=== PATIENT | female | born 1980 | race Caucasian/White ===

== ENCOUNTER 2016-06-18 16:51 | Emergency (ER) | payer OTHER ==
[~2016-06-18] VITALS: Ht 165.1 cm; Wt 124.0 kg
[2016-06-18 16:54] VITALS: BP 143/92; PULSE 90; RESP 24; TEMP 98.1; O2SAT 98
[2016-06-18 17:05] VITALS: BP 141/93; PULSE 92; RESP 18; TEMP 98.3; O2SAT 98
[2016-06-18] MEDS ORDERED: METH500T PO (17:15)
[2016-06-18] MEDS ORDERED: CRYS28TA PO (17:17)
[2016-06-18] MEDS ORDERED: SODIUM CHLOR 0.9% 1000 ML INJ 1,000 ML IV ONE (17:17)
[2016-06-18 17:20] VITALS: O2SAT 97
--- NOTE | 2016-06-18 17:24 | PD ---
HPI Chief Complaint: Numbness/Tingling Time Seen by Provider: 17:09 Travel History International Travel<30 days: No Contact w/Intl Traveler<30days: No Traveled to known affect area: No History of Present Illness HPI The patient is a 35-year-old female who presents emergency department for right facial numbness and right arm numbness. The patient has a history of complicated migraines diagnosed one month ago by her primary physician in [place], [place]. The patient states she had a posterior headache at that time associated with right upper extremity numbness and tingling as well as blurry vision in the right eye. The patient had imaging including an MRI which was negative. The patient was diagnosed with a complicated migraine and placed on Fioricet. The patient notes a one-week history of intermittent symptoms including right facial numbness, seeing "black spots" out of the right eye, and pins and needles to the right upper extremity. She denies any weakness of the arms or legs. She denies any dysphagia or dysarthria. The patient currently resides in [place], [place], but works down the street at [employer]. The patient does take control, but does not smoke. She denies any history of CVA or TIA. She does have a history of recent diagnosis, hypertension, and was placed on methyldopa. [facility] Past Medical History Narrative Medical Complicated migraine, hypertension Asthma: Yes Cardiovascular Problems: Yes Hypertension: Yes Respiratory: Yes Migraines: Yes Influenza Vaccination: No ?: Not LMP: 05/22/16 Social History Alcohol Use: No Tobacco Use: No Substance Use: No Allergies-Medications (Allergen,Severity, Reaction): Coded Allergies: Erythromycin (Verified Allergy, Severe, 06/18/16) Sulfa (Verified Allergy, Severe, 06/18/16) Reported Meds & Prescriptions Reported Meds & Active Scripts Active Reported Cryselle-28 (Norgestrel-Ethinyl Estradiol) 0.3-30 Mg-Mcg Tab 1 Tab PO DAILY Methyldopa 500 Mg Tab 500 Mg PO BID Review of Systems Except as stated in HPI: all other systems reviewed are Neg General / Constitutional: No: Fever Eyes: Positive: Visual changes HENT: Positive: Headaches, No: Neck Pain Cardiovascular: No: Chest Pain or Discomfort Respiratory: No: Shortness of Breath Gastrointestinal: No: Nausea, Vomiting, Abdominal Pain Musculoskeletal: No: Weakness Neurologic: Positive: Paresthesia, Sensory Disturbance Physical Exam Narrative GENERAL: Awake, alert, pleasant 35-year-old female who appears her stated age and is in no acute respiratory distress. SKIN: Warm and dry. HEAD: Atraumatic. Normocephalic. EYES: Pupils equal and round. Pupils are 3 mm bilateral and reactive. EOMs are intact. Patient is able to see fingers at a distance of 2 feet without difficulty. ENT: No nasal bleeding or discharge. Mucous membranes pink and moist. NECK: Trachea midline. No JVD. CARDIOVASCULAR: Regular rate and rhythm. No murmur appreciated. RESPIRATORY: No accessory muscle use. Clear to auscultation. Breath sounds equal bilaterally. GASTROINTESTINAL: Abdomen soft, non-tender, nondistended. Obese, no rebound tenderness. MUSCULOSKELETAL: No obvious deformities. No clubbing. No cyanosis. No edema. NEUROLOGICAL: Awake and alert. Smile is symmetric. Muscles are intact. Patient is able to see fingers at a distance of 2 feet without difficulty. No dysarthria noted. Patient is alert and oriented 4. No drift of the upper or lower extremities. Finger to nose is normal. Heel-to- merrill is normal. Decreased sensation in V1, V2, V3 distribution on the right side of the face when compared to the left. Decreased sensation to the right arm when compared to the left on physical exam. Sensation is symmetric to lower extremities. PSYCHIATRIC: Appropriate mood and affect; insight and judgment normal. Data Data Last Documented VS Vital Signs Date Time Temp Pulse Resp B/P Pulse Ox O2 Delivery O2 Flow Rate FiO2 06/18/16 18:17 65 16 124/63 95 Room Air 06/18/16 17:05 98.3 Orders Complete Blood Count With Diff (06/18/16 17:17) Comprehensive Metabolic Panel (06/18/16 17:17) Westergren Sedimentation Rate (06/18/16 17:17) C-Reactive Protein (Crp) (06/18/16 17:17) Prothrombin Time / Inr (Pt) (06/18/16 17:17) Act Partial Throm Time (Ptt) (06/18/16 17:17) Ecg Monitoring (06/18/16 17:17) Iv Access Insert/Monitor (06/18/16 17:17) Oximetry (06/18/16 17:17) Sodium Chloride 0.9% Flush (Ns Flush) (06/18/16 17:30) Prochlorperazine Inj (Compazine Inj) (06/18/16 17:30) Diphenhydramine Inj (Benadryl Inj) (06/18/16 17:30) Sodium Chlor 0.9% 1000 Ml Inj (Ns 1000 M (06/18/16 17:17) Morphine Inj (Morphine Inj) (06/18/16 17:30) Mri Brain W/O Contrast (06/18/16 ) Electrocardiogram (06/18/16 15:11) Ketorolac Inj (Toradol Inj) (06/18/16 19:15) Radiology Film Requests (06/18/16 ) Labs Laboratory Tests Test 06/18/16 17:30 White Blood Count 8.3 TH/MM3 Red Blood Count 4.42 MIL/MM3 Hemoglobin 11.9 GM/DL Hematocrit 36.6 % Mean Corpuscular Volume 82.8 FL Mean Corpuscular Hemoglobin 26.9 PG Mean Corpuscular Hemoglobin 32.5 % Concent Red Cell Distribution Width 14.3 % Platelet Count 275 TH/MM3 Mean Platelet Volume 7.9 FL Neutrophils (%) (Auto) 62.2 % Lymphocytes (%) (Auto) 31.0 % Monocytes (%) (Auto) 6.6 % Eosinophils (%) (Auto) 0.1 % Basophils (%) (Auto) 0.1 % Neutrophils # (Auto) 5.2 TH/MM3 Lymphocytes # (Auto) 2.6 TH/MM3 Monocytes # (Auto) 0.5 TH/MM3 Eosinophils # (Auto) 0.0 TH/MM3 Basophils # (Auto) 0.0 TH/MM3 CBC Comment DIFF FINAL Differential Comment Erythrocyte Sedimentation Rate 46 mm/hr Prothrombin Time 10.5 SEC Prothromb Time International 1.0 RATIO Ratio Activated Partial 27.6 SEC Thromboplast Time Sodium Level 139 MEQ/L Potassium Level 3.4 MEQ/L Chloride Level 101 MEQ/L Carbon Dioxide Level 29.6 MEQ/L Anion Gap 8 MEQ/L Blood Urea Nitrogen 11 MG/DL Creatinine 1.14 MG/DL Estimat Glomerular Filtration 55 ML/MIN Rate Random Glucose 102 MG/DL Calcium Level 8.2 MG/DL Total Bilirubin 0.3 MG/DL Aspartate Amino Transf 11 U/L (AST/SGOT) Alanine Aminotransferase 19 U/L (ALT/SGPT) Alkaline Phosphatase 62 U/L C-Reactive Protein 6.00 MG/DL Total Protein 6.3 GM/DL Albumin 2.9 GM/DL [facility] Medical Decision Making Medical Screen Exam Complete: Yes Emergency Medical Condition: Yes Medical Record Reviewed: Yes Interpretation(s) EKG reveals normal sinus rhythm with a rate 88. Short MN interval of 110 ms. No delta wave noted. Laboratory Tests Test 06/18/16 17:30 White Blood Count 8.3 TH/MM3 Red Blood Count 4.42 MIL/MM3 Hemoglobin 11.9 GM/DL Hematocrit 36.6 % Mean Corpuscular Volume 82.8 FL Mean Corpuscular Hemoglobin 26.9 PG Mean Corpuscular Hemoglobin 32.5 % Concent Red Cell Distribution Width 14.3 % Platelet Count 275 TH/MM3 Mean Platelet Volume 7.9 FL Neutrophils (%) (Auto) 62.2 % Lymphocytes (%) (Auto) 31.0 % Monocytes (%) (Auto) 6.6 % Eosinophils (%) (Auto) 0.1 % Basophils (%) (Auto) 0.1 % Neutrophils # (Auto) 5.2 TH/MM3 Lymphocytes # (Auto) 2.6 TH/MM3 Monocytes # (Auto) 0.5 TH/MM3 Eosinophils # (Auto) 0.0 TH/MM3 Basophils # (Auto) 0.0 TH/MM3 CBC Comment DIFF FINAL Differential Comment Erythrocyte Sedimentation Rate 46 mm/hr Prothrombin Time 10.5 SEC Prothromb Time International 1.0 RATIO Ratio Activated Partial 27.6 SEC Thromboplast Time Sodium Level 139 MEQ/L Potassium Level 3.4 MEQ/L Chloride Level 101 MEQ/L Carbon Dioxide Level 29.6 MEQ/L Anion Gap 8 MEQ/L Blood Urea Nitrogen 11 MG/DL Creatinine 1.14 MG/DL Estimat Glomerular Filtration 55 ML/MIN Rate Random Glucose 102 MG/DL Calcium Level 8.2 MG/DL Total Bilirubin 0.3 MG/DL Aspartate Amino Transf 11 U/L (AST/SGOT) Alanine Aminotransferase 19 U/L (ALT/SGPT) Alkaline Phosphatase 62 U/L C-Reactive Protein 6.00 MG/DL Total Protein 6.3 GM/DL Albumin 2.9 GM/DL MRI of the brain reveals normal noncontrast MRI of the brain. Differential Diagnosis Differential diagnosis includes complicated migraine, CVA, TIA, multiple sclerosis, cavernous sinus thrombosis, intracranial hemorrhage, cervical radiculopathy. Narrative Course IV was established, labs are drawn and sent, and the patient was placed on cardiac telemetry monitoring and continuous pulse oximetry monitoring. The patient does have neurologic complaints without headache, but has had similar symptoms in the past secondary to a complicated migraine. Symptoms have been intermittent and ongoing for 1 week, patient would not be a candidate for TPA. She does have decreased sensation to the V1, V2, and V3 distribution of the face as well as the arm, but would not be a TPA candidate with her time if symptoms and stroke scale of 1. Therefore, patient had an IV established, labs are drawn and sent, and the patient was administered migraine medications. Stat MRI was ordered to evaluate for possible CVA, however, she has had a negative MRI in the past. CRP is mildly elevated at 6, sedimentation rate is mildly elevated at 46, MRI the brain is negative. Patient may have auto immune pathology for her headaches versus complicated migraine. The patient was reassessed at 7:05 PM, her symptoms had significantly improved in the face and eye, still had mild numbness/tingling to the right arm. Patient was administered Toradol 30 mg intravenously. The patient be discharged home with a copy of her MRI as well as an MRI disc and lab results to follow-up with her primary physician and the neurologist that she has an appointment with. The patient agrees and understands. The patient's mother will drive her home. Diagnosis Primary Impression: Complicated migraine Additional Impression: Paresthesias Additional Instructions: MRI disc and copy of MRI report/labs at discharge. Ride home with father. Return if symptoms worsen or progress. Condition: Stable Solomon Elder MD Jun 18, 2016 17:24
[2016-06-18] MEDS ORDERED: SODIUM CHLORIDE 0.9% FLUSH 5 ML FLUSH IVF PRN (17:30)
[2016-06-18] MEDS ORDERED: diphenhydrAMINE HCL 50 MG/ML VIAL IVP ONE (17:30)
[2016-06-18] MEDS ORDERED: PROCHLORPERAZINE INJ 10 MG/2 ML VIAL IVP ONE (17:30)
[2016-06-18] MEDS ORDERED: MORPHINE SULFATE 4 MG/ML INJ IV PUSH ONE (17:30)
[2016-06-18 17:59] LABS: AUTOMATED NEUTROPHIL # 5.2 TH/MM3 (1.8-7.7); BASOPHIL % 0.1 % (0.0-2.0); EOSINOPHIL % 0.1 % (0.0-4.0); HEMATOCRIT 36.6 % (35.0-46.0); HEMO FLAGS DIFF FINAL; LYMPHOCYTE # 2.6 TH/MM3 (1.0-4.8); MEAN CELL VOLUME 82.8 FL (80.0-100.0); MEAN CORPUSCULAR HEMOGLOBIN 26.9 PG (27.0-34.0); MEAN CORPUSCULAR HGB CONC 32.5 % (32.0-36.0); MONO % 6.6 % (0.0-8.0); NEUT % 62.2 % (16.0-70.0); PLATELET COUNT 275 TH/MM3 (150-450); RED BLOOD COUNT 4.42 MIL/MM3 (4.00-5.30); RED CELL DISTRIBUTION WIDTH 14.3 % (11.6-17.2); WHITE BLOOD COUNT 8.3 TH/MM3 (4.0-11.0)
[2016-06-18 18:07] LABS: APTT (PATIENT) 27.6 SEC (24.3-30.1); PROTHROMBIN TIME - PATIENT 10.5 SEC (9.8-11.6)
[2016-06-18 18:16] LABS: ANION GAP 8 MEQ/L (5-15); AST (GOT) 11 U/L (15-37); BICARBONATE 29.6 MEQ/L (21.0-32.0); BLOOD UREA NITROGEN 11 MG/DL (7-18); CHLORIDE 101 MEQ/L (98-107); GLOMERULAR FILTRATION RATE 55 ML/MIN (>89); POTASSIUM 3.4 MEQ/L (3.5-5.1); SODIUM (NA) 139 MEQ/L (136-145)
[2016-06-18 18:17] VITALS: BP 124/63; PULSE 65; RESP 16; O2SAT 95
[2016-06-18 18:20] LABS: ALKALINE PHOSPHATASE 62 U/L (45-117); ALT (GPT) 19 U/L (10-53); TOTAL BILIRUBIN ADULT 0.3 MG/DL (0.2-1.0)
--- NOTE | 2016-06-18 19:00 | RADRPT ---
EXAM DATE/TIME: 06/18/2016 18:34 [facility] COMPARISON: No previous studies available for comparison. INDICATIONS : CVA. Numbness and tingling on right side of face and right arm. MEDICAL HISTORY : Hypertension. Asthma. SURGICAL HISTORY : Right ankle surgery. ENCOUNTER: Initial ACUITY: 1 day PAIN SCORE: 0/10 LOCATION: Head. TECHNIQUE: Multiplanar, multisequence MRI of the brain was performed without contrast. FINDINGS: CEREBRUM: The ventricles are normal for age. No evidence of midline shift, mass lesion, hemorrhage or acute in farction. No extraaxial fluid collections are seen. The pituitary gland and suprasellar cistern are normal in configuration. WHITE MATTER: No significant signal abnormalities are seen in the white matter. POSTERIOR FOSSA: The cerebellum and brainstem are intact. The 4th ventricle is midline. The cerebellopontine angle is unremarkable. The cerebellar tonsils are normal in position. DIFFUSION IMAGING: No focal areas of restricted diffusion are seen. No evidence of acute infarction. EXTRACRANIAL: The visualized portions of the orbits and paranasal sinuses are unremarkable. CONCLUSION: Normal noncontrast MRI of the brain. Stan Gonzalez MD on June 18, 2016 at 18:58 Board Certified Radiologist. This report was verified electronically.
[2016-06-18] MEDS ORDERED: KETOROLAC TROMETHAMINE 30 MG/ML (IVP) VIAL IV PUSH ONE (19:15)
--- NOTE | 2016-06-19 14:51 | EKG ---
Date Performed: 06/18/2016 Time Performed: 15:11:15 PTAGE: 35 years EKG: Sinus rhythm WITH SHORT MS INTERVAL BORDERLINE ECG NO PREVIOUS TRACING DOCTOR: Fátima Rojas Interpretating Date/Time 06/19/2016 14:51:14
== END 2016-06-18 21:43 | disposition home or self-care (01) ==
LOC: NEPA 16:51
DX: G43.109 Migraine with aura, not intractable, without status migrainosus (principal); R20.2 Paresthesia of skin; R94.31 Abnormal electrocardiogram [ECG] [EKG]; I10 Essential (primary) hypertension; J45.909 Unspecified asthma, uncomplicated
CPT/HCPCS: 70551; 80053; 85025; 85610; 85652; 85730; 86140; 93005; 96374; 96375; 99284; J0780; J1200; J1885; J2270; J7030

== ENCOUNTER 2016-09-02 16:35 | Observation (INO) | payer OTHER ==
[~2016-09-02] VITALS: Ht 165.1 cm; Wt 125.0 kg
[2016-09-02] VITALS (8 sets, daily range): BP systolic 116–152; BP diastolic 63–99; PULSE 68–88; RESP 16–25; TEMP 97.9–98; O2SAT 96–100
[~2016-09-02 16:35] MED LIST: CRYS28TA PO; METH500T PO
[2016-09-02] MEDS ORDERED: SODIUM CHLORIDE 0.9% FLUSH 10 ML FLUSH IVF PRN (17:00)
--- NOTE | 2016-09-02 17:07 | PD ---
HPI Chief Complaint: Neuro Symptoms/ Deficits Time Seen by Provider: 17:02 Travel History International Travel<30 days: No Contact w/Intl Traveler<30days: No Traveled to known affect area: No History of Present Illness HPI 35-year-old female presents to the emergency department for evaluation of symptoms that started at 345 this afternoon. Patient is from [place], but works here in [place]. She has a neurologist in [place]. She states she has had these ongoing symptoms. She reports history of migraine headaches. Patient states that she has twitching of her bilateral lower extremities. She reports heaviness of her right arm and right leg and inability to open her right eye. Patient states these are similar to her previous episodes, but "this is different". The patient had an EEG done recently by her neurologist for similar symptoms. She has had MRIs done previously. Patient was seen in June for similar episode and a MRI was completed at that time. PFSH Past Medical History Asthma: Yes Cardiovascular Problems: Yes Diminished Hearing: No Hypertension: Yes Respiratory: Yes Migraines: Yes Tetanus Vaccination: < 5 Years Influenza Vaccination: No ?: Unknown Social History Alcohol Use: No Tobacco Use: No Substance Use: No Allergies-Medications (Allergen,Severity, Reaction): Coded Allergies: Erythromycin (Verified Allergy, Severe, 09/02/16) Sulfa (Verified Allergy, Severe, 09/02/16) Reported Meds & Prescriptions Reported Meds & Active Scripts Active Reported Vitamin D3 (Cholecalciferol) 50,000 Unit Cap 50,000 Units PO Wed Gabapentin 100 Mg Cap 300 Mg PO TID Cryselle-28 (Norgestrel-Ethinyl Estradiol) 0.3-30 Mg-Mcg Tab 1 Tab PO DAILY Methyldopa 500 Mg Tab 500 Mg PO BID Review of Systems Except as stated in HPI: all other systems reviewed are Neg Physical Exam Narrative GENERAL: Well-nourished, well-developed female patient, afebrile. SKIN: Focused skin assessment warm/dry. HEAD: Normocephalic. Atraumatic. EYES: No scleral icterus. No injection or drainage. PERRLA. Slight ptosis of the right eye. NECK: Supple, trachea midline. No JVD or lymphadenopathy. CARDIOVASCULAR: Regular rate and rhythm without murmurs, gallops, or rubs. RESPIRATORY: Breath sounds equal bilaterally. No accessory muscle use. Lungs sounds are clear to auscultation. GASTROINTESTINAL: Abdomen soft, non-tender, nondistended. MUSCULOSKELETAL: No cyanosis, or edema. Right upper extremity strength 4/5. Left upper extremity strength 5/5. Right lower extremity strength 4/5. Left upper extremity strength 5/5. NEUROLOGICAL: Awake and alert. Cranial nerves II through XII intact. Motor and sensory grossly within normal limits. Five out of 5 muscle strength in all muscle groups. Normal speech. Finger to nose is normal bilaterally. Patient has difficulty with [id number] with the right leg, has no difficulty with her left leg. Data Data Last Documented VS Vital Signs Date Time Temp Pulse Resp B/P Pulse Ox O2 Delivery O2 Flow Rate FiO2 09/02/16 19:19 77 16 141/65 99 Room Air 09/02/16 16:41 98.0 Orders Electrocardiogram (09/02/16 16:59) Prothrombin Time / Inr (Pt) (09/02/16 16:59) Act Partial Throm Time (Ptt) (09/02/16 16:59) Complete Blood Count With Diff (09/02/16 16:59) Comprehensive Metabolic Panel (09/02/16 16:59) Creatine Kinase (Cpk) (09/02/16 16:59) Drug Screen, Random Urine (09/02/16 16:59) Troponin I (09/02/16 16:59) Urinalysis - C+S If Indicated (09/02/16 16:59) Ecg Monitoring (09/02/16 16:59) Iv Access Insert/Monitor (09/02/16 16:59) Oximetry (09/02/16 16:59) Sodium Chloride 0.9% Flush (Ns Flush) (09/02/16 17:00) Ed Urine Pregnancytest Poc (09/02/16 17:01) Ct Brain W/O Iv Contrast(Rout) (09/02/16 ) Diphenhydramine Inj (Benadryl Inj) (09/02/16 17:30) Prochlorperazine Inj (Compazine Inj) (09/02/16 17:30) Cta Brain W Iv Contrast W 3d (09/02/16 ) Mri Brain W/O Contrast (09/02/16 ) Cta Neck W Iv Contrast W 3d (09/02/16 ) I-Stat Creatinine (09/02/16 17:15) I-Stat Profile (09/02/16 17:15) Iohexol 350 Inj (Omnipaque 350 Inj) (09/02/16 18:36) Aspirin (Aspirin) (09/02/16 19:30) Labs Laboratory Tests Test 09/02/16 09/02/16 17:15 19:10 White Blood Count 8.0 TH/MM3 Red Blood Count 4.55 MIL/MM3 Hemoglobin 12.7 GM/DL Bedside Hemoglobin 12.6 G/DL Hematocrit 37.6 % Bedside Hematocrit 37.0 % Mean Corpuscular Volume 82.6 FL Mean Corpuscular Hemoglobin 27.8 PG Mean Corpuscular Hemoglobin 33.7 % Concent Red Cell Distribution Width 15.2 % Platelet Count 301 TH/MM3 Mean Platelet Volume 8.2 FL Neutrophils (%) (Auto) 59.0 % Lymphocytes (%) (Auto) 32.6 % Monocytes (%) (Auto) 8.3 % Eosinophils (%) (Auto) 0.0 % Basophils (%) (Auto) 0.1 % Neutrophils # (Auto) 4.7 TH/MM3 Lymphocytes # (Auto) 2.6 TH/MM3 Monocytes # (Auto) 0.7 TH/MM3 Eosinophils # (Auto) 0.0 TH/MM3 Basophils # (Auto) 0.0 TH/MM3 CBC Comment DIFF FINAL Differential Comment Prothrombin Time 10.4 SEC Prothromb Time International 0.9 RATIO Ratio Activated Partial 28.7 SEC Thromboplast Time Bedside Sodium 138 MMOL/L Sodium Level 138 MEQ/L Bedside Potassium 4.1 MMOL/L Potassium Level 4.2 MEQ/L Bedside Chloride 102 MMOL/L Chloride Level 105 MEQ/L Carbon Dioxide Level 24.3 MEQ/L Anion Gap 9 MEQ/L Bedside Blood Urea Nitrogen 8 MG/DL Blood Urea Nitrogen 8 MG/DL Creatinine 0.79 MG/DL Bedside Creatinine 0.9 MG/DL Estimat Glomerular Filtration 84 ML/MIN Rate Bedside Glucose 73 MG/DL Random Glucose 69 MG/DL Calcium Level 8.6 MG/DL Total Bilirubin 0.3 MG/DL Aspartate Amino Transf 18 U/L (AST/SGOT) Alanine Aminotransferase 21 U/L (ALT/SGPT) Alkaline Phosphatase 59 U/L Total Creatine Kinase 80 U/L Troponin I LESS THAN 0.02 NG/ML Total Protein 6.6 GM/DL Albumin 3.1 GM/DL Urine Opiates Screen NEG Urine Barbiturates Screen NEG Urine Amphetamines Screen NEG Urine Benzodiazepines Screen NEG Urine Cocaine Screen NEG Urine Cannabinoids Screen NEG MDM Medical Decision Making Medical Screen Exam Complete: Yes Emergency Medical Condition: Yes Medical Record Reviewed: Yes Interpretation(s) CTA brain - CONCLUSION: 1. No embolic event to explain current clinical symptoms. 2. 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 3. The left P1 segment also appears to be somewhat diminutive and irregular with a diminutive left posterior communicating artery which is probably congenital. However, the combination could limit blood flow to the left posterior cerebral artery territory. Again, anatomic detail is somewhat limited and findings could be confirmed with standard angiography if clinically warranted. Last Impressions Head CT 09/02/16 0000 Signed Impressions: Service Date/Time: Wednesday, September 02, 2016 17:20 - CONCLUSION: No acute intracranial findings. Neftali Quigley MD CTA neck - CONCLUSION: Negative exam. MRI brain - CONCLUSION: Normal examination. Differential Diagnosis Migraine headache versus CVA versus electrolyte abnormality Narrative Course 35-year-old female presents to the emergency department for evaluation of neurological symptoms. Patient has history of similar symptoms in the past. She seems a neurologist in [place]. EKG, CBC, CMP, CK, troponin, PTT , PT/INR, UA, UDS, UPT are ordered and pending. My attending physician, Dr. Garay, called a stroke alert based on symptoms. He spoke to Dr. Alberto, neurologist, who does not recommend TPA based on previous history of complex migraines with similar symptoms. CT of the brain shows no acute intracranial findings. CTA of the brain and MRI of the brain are ordered. EKG shows sinus rhythm, heart rate 81, no acute ST changes. CBC is unremarkable. CMP shows no acute abnormality. CK is 80. Troponin is less than 0.02. Coags are unremarkable. 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 However, the combination could limit blood flow to the left posterior cerebral artery territory. Again, anatomic detail is somewhat limited and findings could be confirmed with standard angiography if clinically warranted. CTA of the neck shows no acute abnormality. MRI of the brain is normal. Dr. Alberto would like patient admitted and neurology consulted. [facility] [place] is paged for admission. Dr. Remy accepted admission. Diagnosis Primary Impression: TIA (transient ischemic attack) Qualified Code: G45.9 - Transient cerebral ischemia, unspecified type Admitting Information Admitting Physician Requests: Lesley Mckenzie September 02, 2016 17:07
--- NOTE | 2016-09-02 17:24 | PD ---
Data Data Last Documented VS Vital Signs Date Time Temp Pulse Resp B/P Pulse Ox O2 Delivery O2 Flow Rate FiO2 09/02/16 19:19 77 16 141/65 99 Room Air 09/02/16 16:41 98.0 Orders Electrocardiogram (09/02/16 16:59) Prothrombin Time / Inr (Pt) (09/02/16 16:59) Act Partial Throm Time (Ptt) (09/02/16 16:59) Complete Blood Count With Diff (09/02/16 16:59) Comprehensive Metabolic Panel (09/02/16 16:59) Creatine Kinase (Cpk) (09/02/16 16:59) Drug Screen, Random Urine (09/02/16 16:59) Troponin I (09/02/16 16:59) Urinalysis - C+S If Indicated (09/02/16 16:59) Ecg Monitoring (09/02/16 16:59) Iv Access Insert/Monitor (09/02/16 16:59) Oximetry (09/02/16 16:59) Sodium Chloride 0.9% Flush (Ns Flush) (09/02/16 17:00) Ed Urine Pregnancytest Poc (09/02/16 17:01) Ct Brain W/O Iv Contrast(Rout) (09/02/16 ) Diphenhydramine Inj (Benadryl Inj) (09/02/16 17:30) Prochlorperazine Inj (Compazine Inj) (09/02/16 17:30) Cta Brain W Iv Contrast W 3d (09/02/16 ) Mri Brain W/O Contrast (09/02/16 ) Cta Neck W Iv Contrast W 3d (09/02/16 ) I-Stat Creatinine (09/02/16 17:15) I-Stat Profile (09/02/16 17:15) Iohexol 350 Inj (Omnipaque 350 Inj) (09/02/16 18:36) Aspirin (Aspirin) (09/02/16 19:30) Admit Order (Ed Use Only) (09/02/16 21:59) Consult Neurology (09/02/16 ) Place In Observation (09/02/16 ) Vital Signs (Adult) Q2HX12,Q4H (09/02/16 22:00) Nih Stroke Scale - Nihss .Daily (09/02/16 22:00) Neuro Checks Q2HX12,Q4H (09/02/16 22:00) Notify Dr: Other (09/02/16 22:00) Remove Urinary Catheter .ONCE (09/02/16 22:00) Ot Request For Service (09/02/16 22:00) Pt Request For Service (09/02/16 22:00) St Request For Service (09/02/16 22:00) Case Management Consult (09/02/16 ) Activity Oob Ad Shannan (09/02/16 22:00) Nursing Bedside Swallow Assess .ONCE (09/02/16 22:00) Scd Bilateral/Knee High TERESA.QSHIFT (09/02/16 22:00) Hemoglobin (Hgb) A1c (09/02/16 22:00) Lipid Profile (09/03/16 06:00) ^ Hold Medication (09/02/16 22:00) Sodium Chloride 0.9% Flush (Ns Flush) (09/03/16 09:00) Sodium Chloride 0.9% Flush (Ns Flush) (09/02/16 22:00) Bedside Glucose TERESA.AC&HS (09/02/16 22:00) Dextrose 50% In Chris (Vial) Inj (D50w (Vi (09/02/16 22:00) Glucagon Inj (Glucagon Inj) (09/02/16 22:00) City Carrier / Telemetry TERESA.Q8H (09/02/16 22:00) Consult Stoke Navigator (09/02/16 ) Enoxaparin Inj (Lovenox Inj) (09/03/16 09:00) Labs Laboratory Tests Test 09/02/16 09/02/16 17:15 19:10 White Blood Count 8.0 TH/MM3 Red Blood Count 4.55 MIL/MM3 Hemoglobin 12.7 GM/DL Bedside Hemoglobin 12.6 G/DL Hematocrit 37.6 % Bedside Hematocrit 37.0 % Mean Corpuscular Volume 82.6 FL Mean Corpuscular Hemoglobin 27.8 PG Mean Corpuscular Hemoglobin 33.7 % Concent Red Cell Distribution Width 15.2 % Platelet Count 301 TH/MM3 Mean Platelet Volume 8.2 FL Neutrophils (%) (Auto) 59.0 % Lymphocytes (%) (Auto) 32.6 % Monocytes (%) (Auto) 8.3 % Eosinophils (%) (Auto) 0.0 % Basophils (%) (Auto) 0.1 % Neutrophils # (Auto) 4.7 TH/MM3 Lymphocytes # (Auto) 2.6 TH/MM3 Monocytes # (Auto) 0.7 TH/MM3 Eosinophils # (Auto) 0.0 TH/MM3 Basophils # (Auto) 0.0 TH/MM3 CBC Comment DIFF FINAL Differential Comment Prothrombin Time 10.4 SEC Prothromb Time International 0.9 RATIO Ratio Activated Partial 28.7 SEC Thromboplast Time Bedside Sodium 138 MMOL/L Sodium Level 138 MEQ/L Bedside Potassium 4.1 MMOL/L Potassium Level 4.2 MEQ/L Bedside Chloride 102 MMOL/L Chloride Level 105 MEQ/L Carbon Dioxide Level 24.3 MEQ/L Anion Gap 9 MEQ/L Bedside Blood Urea Nitrogen 8 MG/DL Blood Urea Nitrogen 8 MG/DL Creatinine 0.79 MG/DL Bedside Creatinine 0.9 MG/DL Estimat Glomerular Filtration 84 ML/MIN Rate Bedside Glucose 73 MG/DL Random Glucose 69 MG/DL Calcium Level 8.6 MG/DL Total Bilirubin 0.3 MG/DL Aspartate Amino Transf 18 U/L (AST/SGOT) Alanine Aminotransferase 21 U/L (ALT/SGPT) Alkaline Phosphatase 59 U/L Total Creatine Kinase 80 U/L Troponin I LESS THAN 0.02 NG/ML Total Protein 6.6 GM/DL Albumin 3.1 GM/DL Urine Opiates Screen NEG Urine Barbiturates Screen NEG Urine Amphetamines Screen NEG Urine Benzodiazepines Screen NEG Urine Cocaine Screen NEG Urine Cannabinoids Screen NEG MDM Supervised Visit with ROBBY: Yes Narrative Course I, Dr. Garay, have reviewed the advance practice practitioner's documentation and am in agreement, met with the patient face to face, made the diagnosis, and the medical decision making was done by me. *My assessment and Findings: Is a 35-year-old female with a history of recurrent complex migraine she states that "something is different today". She states that her right upper and right lower extremity feels very heavy. She is also noticed that she is having some increased difficulty opening her right eye. 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 No hyperreflexia was noted. 5 out of 5 strength in left upper left lower extremity. Mentally she is intact she is alert and awake and oriented and answers all questions properly. My impression is complex migraine favored over TIA. Her NIH stroke scale is quite low and there is no indication for TPA at this time. Further bili is unlikely that she has had a syncopal event leading to both cranial nerve III and extremity findings as documented above. Certainly things even less likely when she does not have any language deficit. The patient was discussed with Dr. gomez after her stroke alert was activated and she agrees the patient is not a candidate for TPA. She will be admitted to the hospital for further evaluation including MRI and consultation in the morning with neurology. Diagnosis Primary Impression: Neurological deficit, transient Additional Impression: Paresthesias Admitting Information Admitting Physician Requests: Admit Condition: Stable Leonard Garay MD September 02, 2016 17:24
[2016-09-02] MEDS ORDERED: PROCHLORPERAZINE INJ 10 MG/2 ML VIAL IV PUSH ONE (17:30)
[2016-09-02] MEDS ORDERED: diphenhydrAMINE HCL 50 MG/ML VIAL IV PUSH ONE (17:30)
--- NOTE | 2016-09-02 17:37 | RADRPT ---
EXAM DATE/TIME: 09/02/2016 17:20 [facility] COMPARISON: No previous studies available for comparison. INDICATIONS : Right side facial droop right side heaviness . RADIATION DOSE: 56.35 CTDIvol (mGy) This report was called by Dr. Quigley to Dr. Garay at 1734 MEDICAL HISTORY : Unable to obtain SURGICAL HISTORY : Unable to obtain ENCOUNTER: Initial ACUITY: 1 day PAIN SCALE: 0/10 LOCATION: cranial TECHNIQUE: Multiple contiguous axial images were obtained of the head. Using automated exposure control and adj ustment of the mA and/or kV according to patient size, radiation dose was kept as low as reasonably a chievable to obtain optimal diagnostic quality images. FINDINGS: CEREBRUM: The ventricles are normal for age. No evidence of midline shift, mass lesion, hemorrhage or acute in farction. No extra-axial fluid collections are seen. POSTERIOR FOSSA: The cerebellum and brainstem are intact. The 4th ventricle is midline. The cerebellopontine angle i s unremarkable. EXTRACRANIAL: The visualized portion of the orbits is intact. SKULL: The calvaria is intact. No evidence of skull fracture. CONCLUSION: No acute intracranial findings. Neftali Quigley MD on September 02, 2016 at 17:31 Board Certified Radiologist. This report was verified electronically.
[2016-09-02 17:42] LABS: AUTOMATED NEUTROPHIL # 4.7 TH/MM3 (1.8-7.7); BASOPHIL % 0.1 % (0.0-2.0); HEMATOCRIT 37.6 % (35.0-46.0); HEMO FLAGS DIFF FINAL; LYMPH % 32.6 % (9.0-44.0); LYMPHOCYTE # 2.6 TH/MM3 (1.0-4.8); MEAN CELL VOLUME 82.6 FL (80.0-100.0); MEAN CORPUSCULAR HEMOGLOBIN 27.8 PG (27.0-34.0); MEAN CORPUSCULAR HGB CONC 33.7 % (32.0-36.0); MONO % 8.3 % (0.0-8.0); PLATELET COUNT 301 TH/MM3 (150-450); RED BLOOD COUNT 4.55 MIL/MM3 (4.00-5.30); RED CELL DISTRIBUTION WIDTH 15.2 % (11.6-17.2)
[2016-09-02 17:55] LABS: APTT (PATIENT) 28.7 SEC (24.3-30.1); INTERNATIONAL NORMALIZED RATIO 0.9 RATIO; PROTHROMBIN TIME - PATIENT 10.4 SEC (9.8-11.6)
[2016-09-02 18:08] LABS: ANION GAP 9 MEQ/L (5-15); AST (GOT) 18 U/L (15-37); BICARBONATE 24.3 MEQ/L (21.0-32.0); BLOOD UREA NITROGEN 8 MG/DL (7-18); CHLORIDE 105 MEQ/L (98-107); GLOMERULAR FILTRATION RATE 84 ML/MIN (>89); POTASSIUM 4.2 MEQ/L (3.5-5.1); SODIUM (NA) 138 MEQ/L (136-145)
[2016-09-02 18:09] LABS: ALT (GPT) 21 U/L (10-53)
[2016-09-02 18:13] LABS: ALKALINE PHOSPHATASE 59 U/L (45-117); TOTAL BILIRUBIN ADULT 0.3 MG/DL (0.2-1.0)
[2016-09-02 18:16] LABS: CREATINE KINASE 80 U/L (26-192); I-STAT POTASSIUM 4.1 MMOL/L (3.5-4.9); I-STAT SODIUM 138 MMOL/L (138-146)
[2016-09-02] MEDS ORDERED: IOHEXOL 350 MG/ML 10 ML VIAL (for RAD DIAG) IV ONE (18:36)
--- NOTE | 2016-09-02 18:49 | RADRPT ---
EXAM DATE/TIME: 09/02/2016 18:05 [facility] COMPARISON: No previous studies available for comparison. INDICATIONS : Stroke alert, right sided weakness. IV CONTRAST: 99 cc Omnipaque 350 (iohexol) IV RADIATION DOSE: 30.06 CTDIvol (mGy) MEDICAL HISTORY : None SURGICAL HISTORY : None. ENCOUNTER: Initial ACUITY: 1 day PAIN SCALE: 3/10 LOCATION: Right cranial TECHNIQUE: Volumetric scanning was performed using a multi-row detector CT scanner. The data was post processed with a variety of visualization algorithms including full volume maximum intensity projection, multi -planar sliding thin slab reformation, curved planar reformation, and surface rendering techniques. Using automated exposure control and adjustment of the mA and/or kV according to patient size, radiat ion dose was kept as low as reasonably achievable to obtain optimal diagnostic quality images. FINDINGS: Due to patient's body habitus, examination is somewhat limited but I believe adequate for diagnosis. In-Flow vessels are patent. 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 However, the left A1 segment is widely patent with a prominent anterior communica ting artery which provides flow to the right anterior cerebral artery. Both middle cerebral arteries are patent as well without on embolic event. In the posterior circulation, again, the in-flow vessels are patent. However, both P1 segments appear to be markedly atretic. The right posterior cerebral artery receives its dominant supply from a sotelo nt posterior communicating artery. The left posterior commuting artery appears to be diminutive and t here appears to be some atherosclerotic irregularity of the left P1 segment which may limit blood mary carmen w to the left posterior cerebral artery territory. Again, anatomic detail is somewhat limited and thi s may be artifactual. Moderate chronic sinus disease in the sphenoids sinuses. CONCLUSION: 1. No embolic event to explain current clinical symptoms. 2. 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 3. The left P1 segment also appears to be somewhat diminutive and irregular with a diminutive left po sterior communicating artery which is probably congenital. However, the combination could limit blood flow to the left posterior cerebral artery territory. Again, anatomic detail is somewhat limited and findings could be confirmed with standard angiography if clinically warranted. Gian Jones MD on September 02, 2016 at 18:27 Board Certified Radiologist. This report was verified electronically.
--- NOTE | 2016-09-02 19:12 | RADRPT ---
EXAM DATE/TIME: 09/02/2016 18:05 [facility] COMPARISON: No previous studies available for comparison. INDICATIONS : Stroke alert right sided weakness. IV CONTRAST: 99 cc Omnipaque 350 (iohexol) IV RADIATION DOSE: 30.06 CTDIvol (mGy) ; Combined studies MEDICAL HISTORY : None SURGICAL HISTORY : None. ENCOUNTER: Initial ACUITY: 1 day PAIN SCALE: 5/10 LOCATION: Right cranial Elevated flow velocities and ICA/CCA ratios have been found to correlate with increased degrees of vessel stenosis, calculated as percentage of diameter relative to a normal segment of distal ICA/CCA. TECHNIQUE: Volumetric scanning was performed using a multirow detector CT scanner. The data was post processed with a variety of visualization algorithms including full-volume maximum intensity projection, multip lanar sliding thin-slab reformation, curved-planar reformation, and surface-rendering techniques. Us ing automated exposure control and adjustment of the mA and/or kV according to patient size, radiatio n dose was kept as low as reasonably achievable to obtain optimal diagnostic quality images. FINDINGS: AORTIC ARCH: There is a three-vessel origin of the great vessels from the aorta. No evidence of ostial narrowing. RIGHT CAROTID: The common carotid artery is intact. The carotid bulb has a normal configuration without ulceration o r narrowing. The internal carotid artery lumen is smooth without stenosis. The external carotid demi ry is intact. LEFT CAROTID: The common carotid artery is intact. The carotid bulb has a normal configuration without ulceration or narrowing. The internal carotid artery lumen is smooth without stenosis. The external carotid ar deshawn is intact. VERTEBRALS: The vertebral arteries have a symmetric diameter. No stenotic lesions are seen. CONCLUSION: Negative exam. Gian Jones MD on September 02, 2016 at 19:09 Board Certified Radiologist. This report was verified electronically.
[2016-09-02] MEDS ORDERED: GABA300S (19:15)
[2016-09-02] MEDS ORDERED: GABA100C4 PO ×2 (19:15)
[2016-09-02] MEDS ORDERED: CHOL1CAP34 PO (19:15)
[2016-09-02] MEDS ORDERED: ASPIRIN 325 MG TAB PO ONE (19:30)
[2016-09-02 20:33] LABS: AMPHETAMINE, URINE NEG (NEG); BARBITURATES, URINE NEG (NEG); COCAINE, URINE NEG (NEG)
--- NOTE | 2016-09-02 21:37 | RADRPT ---
EXAM DATE/TIME: 09/02/2016 20:53 [facility] COMPARISON: MRI BRAIN W/O CONTRAST, June 18, 2016, 18:34. INDICATIONS : CVA. Right facial droop. MEDICAL HISTORY : Hypertension. SURGICAL HISTORY : Right ankle. ENCOUNTER: Subsequent ACUITY: 1 day PAIN SCORE: 0/10 LOCATION: head. TECHNIQUE: Multiplanar, multisequence MRI of the brain was performed without contrast. FINDINGS: CEREBRUM: The ventricles are normal for age. No evidence of midline shift, mass lesion, hemorrhage or acute in farction. No extraaxial fluid collections are seen. The pituitary gland and suprasellar cistern are normal in configuration. WHITE MATTER: No significant signal abnormalities are seen in the white matter. POSTERIOR FOSSA: The cerebellum and brainstem are intact. The 4th ventricle is midline. The cerebellopontine angle is unremarkable. The cerebellar tonsils are normal in position. DIFFUSION IMAGING: No focal areas of restricted diffusion are seen. No evidence of acute infarction. EXTRACRANIAL: The visualized portions of the orbits and paranasal sinuses are unremarkable. CONCLUSION: Normal examination. Geoff Mckeon Jr., MD on September 02, 2016 at 21:34 Board Certified Radiologist. This report was verified electronically.
[2016-09-02] MEDS ORDERED: DEXTROSE 50% IN WATER 50 ML VIAL(D50) IV PUSH PRN (22:00)
[2016-09-02] MEDS ORDERED: SODIUM CHLORIDE 0.9% FLUSH 5 ML FLUSH IV FLUSH PRN (22:00)
[2016-09-02] MEDS ORDERED: GLUCAGON 1 MG/ML VIAL OTHER PRN (22:00)
[2016-09-03] VITALS (7 sets, daily range): BP systolic 110–171; BP diastolic 62–86; PULSE 77–99; RESP 15–20; TEMP 98.1–99.3; O2SAT 95–98
--- NOTE | 2016-09-03 07:51 | EKG ---
Date Performed: 09/02/2016 Time Performed: 17:43:09 PTAGE: 35 years EKG: Sinus rhythm NONSPECIFIC T-WAVE ABNORMALITY BORDERLINE ECG PREVIOUS TRACING : 06/18/2016 15.11 Compared to prior tracing no significant change DOCTOR: Rodriguez Parham Interpretating Date/Time 09/03/2016 07:50:49
[2016-09-03 07:54] LABS: HDL CHOLESTEROL 58.3 MG/DL (40.0-60.0); LDL CHOLESTEROL 88 MG/DL (0-99)
[2016-09-03] MEDS ORDERED: ENOXAPARIN SODIUM 40 MG/0.4 ML SYRINGE SQ SCH (09:00)
[2016-09-03] MEDS: SODIUM CHLORIDE 0.9% FLUSH 5 ML FLUSH IV FLUSH SCH ×2 (09:00→21:00)
[2016-09-03] MEDS: SODIUM CHLOR 0.9% 1000 ML INJ 1,000 ML IV SCH ×2 (09:17→22:02)
[2016-09-03] MEDS: ASPIRIN EC 81 MG TABEC PO SCH (09:17)
--- NOTE | 2016-09-03 09:22 | HHI.HP ---
[facility] Primary Care Physician Non-Staff Admission Diagnosis TIA Diagnoses: Chief Complaint: neurological deficit Travel History International Travel<30 Days: No Contact w/Intl Traveler <30 Da: No Traveled to Known Affected Are: No History of Present Illness 35-year-old female with history of migraines and hypertension presents with acute onset of neurological deficit with right face, arm, leg heaviness and weakness. Patient reports yesterday morning she woke up and just wasn't feeling "right". She states she was a little bit dizzy and had some right arm tingling. She took her morning medications, felt much better, then went to work at [employer] in [place] as usual. Patient states while she was at work, she was leaving a meeting around 3:45 PM when she all of a sudden felt worsening right arm and leg heaviness, weakness. She also felt her right face was droopy and she was unable to open the right eye. Coworkers noticed that her speech was slowed, but not slurred, and she was still able to form words. Patient also did notice her legs were twitching which is new for her. She rested in a chair however her symptoms did not improve therefore she was brought to the ER by coworkers. Her symptoms finally resolved after 2 hours which is unusual for her, she states her right arm numbness/tingling will usually go away after 45minutes when this has happened in the past. She denies having any headache although she does have a history of migraines. She denies any photophobia, blurred vision or double vision. The patient lives in [place] and she has been seeing a neurologist Dr. Emily Steward and Jonathan Pinedo, recently had an outpatient EEG, MRI, MRA which she does not know the results of. Currently the patient is seen in the observation unit, symptoms mostly resolved, she has been able to ambulate without difficulty. She has no new medical complaints at this time. Review of Systems Except as stated in HPI: all other systems reviewed are Neg Past Family Social History Past Medical History Migraines Hypertension Past Surgical History Right ankle surgery [place] teeth extractions Reported Medications Vitamin D3 (Cholecalciferol) 50,000 Unit Cap 50,000 Units PO Wed Gabapentin 100 Mg Cap 300 Mg PO TID Cryselle-28 (Norgestrel-Ethinyl Estradiol) 0.3-30 Mg-Mcg Tab 1 Tab PO DAILY Methyldopa 500 Mg Tab 500 Mg PO BID Allergies: Coded Allergies: Erythromycin (Verified Allergy, Severe, 09/02/16) Sulfa (Verified Allergy, Severe, 09/02/16) Active Ordered Medications Current Medications Medications (Trade) Dose Ordered Sig/Td Route Start Time Stop Time Status Last Admin (NS Flush) 2 ml BID IV FLUSH 09/03/16 09:00 (NS Flush) 2 ml UNSCH PRN IV FLUSH 09/02/16 22:00 (D50w (Vial) Inj) 50 ml UNSCH PRN IV PUSH 09/02/16 22:00 (Glucagon Inj) 1 mg UNSCH PRN OTHER 09/02/16 22:00 Aspirin 81 mg 81 mg DAILY PO 09/03/16 09:00 (NS 1000 ml Inj) 1,000 ml @ 75 mls/hr [id number] IV 09/03/16 08:42 Family History Mother with seizures, has pacer/AICD for unknown reason Father with hypertension Social History Smoked tobacco few cigarettes a day for 10 years, age 17-25, quit 8 years ago Occasional 1-2 beers Denies any illicit drug use Stays active, works at [employer] Physical Exam Vital Signs Vital Signs Date Time Temp Pulse Resp B/P Pulse Ox O2 Delivery O2 Flow Rate FiO2 09/03/16 04:12 98.5 77 18 110/62 98 09/02/16 23:22 97.9 68 18 116/63 96 09/02/16 23:15 70 09/02/16 22:11 70 16 120/70 97 Room Air 09/02/16 19:19 77 16 141/65 99 Room Air 09/02/16 17:39 83 20 143/82 100 Room Air 09/02/16 17:06 98 Room Air 09/02/16 16:53 98 Room Air 09/02/16 16:41 98.0 88 18 152/99 98 09/02/16 16:40 84 25 152/99 98 Room Air Physical Exam GENERAL: Well-nourished, well-developed pleasant obese female patient in NAD. SKIN: Warm and dry. No rash. HEAD: Normocephalic. Atraumatic. EYES: Pupils equal and round. No scleral icterus. No injection or drainage. ENT: No nasal bleeding or discharge. Mucous membranes pink and moist. NECK: Supple. Trachea midline. CARDIOVASCULAR: Regular rate and rhythm. S1, S2 noted. No murmur appreciated. RESPIRATORY: No accessory muscle use. Clear to auscultation. Breath sounds equal bilaterally. GASTROINTESTINAL: Abdomen soft, non-tender, nondistended. Normoactive bowel sounds x4. MUSCULOSKELETAL: No obvious deformities. Extremities without clubbing, cyanosis , or edema. NEUROLOGICAL: Awake and alert. No obvious cranial nerve deficits. Motor grossly within normal limits. 5/5 muscle strength in bilateral upper and lower extremities. Normal speech. No facial droop/lid lag/tongue deviation. Symmetric nasolabial folds. Distal lower extremity sensation equal and intact. PSYCHIATRIC: Appropriate mood and affect; insight and judgment normal. Laboratory Laboratory Tests Test 09/02/16 09/02/16 09/03/16 17:15 19:10 07:00 White Blood Count 8.0 Red Blood Count 4.55 Hemoglobin 12.7 Bedside Hemoglobin 12.6 Hematocrit 37.6 Bedside Hematocrit 37.0 Mean Corpuscular Volume 82.6 Mean Corpuscular Hemoglobin 27.8 Mean Corpuscular Hemoglobin 33.7 Concent Red Cell Distribution Width 15.2 Platelet Count 301 Mean Platelet Volume 8.2 Neutrophils (%) (Auto) 59.0 Lymphocytes (%) (Auto) 32.6 Monocytes (%) (Auto) 8.3 Eosinophils (%) (Auto) 0.0 Basophils (%) (Auto) 0.1 Neutrophils # (Auto) 4.7 Lymphocytes # (Auto) 2.6 Monocytes # (Auto) 0.7 Eosinophils # (Auto) 0.0 Basophils # (Auto) 0.0 CBC Comment DIFF FINAL Differential Comment Prothrombin Time 10.4 Prothromb Time International 0.9 Ratio Activated Partial 28.7 Thromboplast Time Bedside Sodium 138 Sodium Level 138 Bedside Potassium 4.1 Potassium Level 4.2 Bedside Chloride 102 Chloride Level 105 Carbon Dioxide Level 24.3 Anion Gap 9 Bedside Blood Urea Nitrogen 8 Blood Urea Nitrogen 8 Creatinine 0.79 Bedside Creatinine 0.9 Estimat Glomerular Filtration 84 Rate Bedside Glucose 73 Random Glucose 69 Calcium Level 8.6 Total Bilirubin 0.3 Aspartate Amino Transf 18 (AST/SGOT) Alanine Aminotransferase 21 (ALT/SGPT) Alkaline Phosphatase 59 Total Creatine Kinase 80 Troponin I LESS THAN 0.02 Total Protein 6.6 Albumin 3.1 Urine Opiates Screen NEG Urine Barbiturates Screen NEG Urine Amphetamines Screen NEG Urine Benzodiazepines Screen NEG Urine Cocaine Screen NEG Urine Cannabinoids Screen NEG Triglycerides Level 106 Cholesterol Level 167 LDL Cholesterol 88 HDL Cholesterol 58.3 Cholesterol/HDL Ratio 2.86 Result Diagram: 09/02/16 1715 09/02/16 1715 Imaging Last Impressions Neck CTA 09/02/16 0000 Signed Impressions: Service Date/Time: Friday, September 02, 2016 18:05 - CONCLUSION: Negative exam. Gian Jones MD Head CTA 09/02/16 0000 Signed Impressions: Service Date/Time: Friday, September 02, 2016 18:05 - CONCLUSION: 1. No embolic event to explain current clinical symptoms. 2. 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 3. The left P1 segment also appears to be somewhat diminutive and irregular with a diminutive left posterior communicating artery which is probably congenital. However, the combination could limit blood flow to the left posterior cerebral artery territory. Again, anatomic detail is somewhat limited and findings could be confirmed with standard angiography if clinically warranted. Gian Jones MD Head CT 09/02/16 0000 Signed Impressions: Service Date/Time: Friday, September 02, 2016 17:20 - CONCLUSION: No acute intracranial findings. Neftali Quigley MD Brain MRI 09/02/16 0000 Signed Impressions: Service Date/Time: Friday, September 02, 2016 20:53 - CONCLUSION: Normal examination. Geoff Mckeon Jr., MD Assessment and Plan Problem List: (1) TIA (transient ischemic attack) ICD Code: G45.9 Status: Acute (2) Neurological deficit, transient ICD Code: R29.818 Status: Acute Assessment and Plan 35-year-old female with history of migraines and hypertension presents with acute onset of neurological deficit with right face, arm, leg heaviness and weakness. Acute Neurological Deficit: suspect TIA, rule out CVA, seizure. Stroke alert called upon arrival, neurology did not recommend TPA due to complicated history of migraines. S/p aspirin 325mg, Symptoms improved. -Head CT images reviewed, no acute findings. -Head CTA shows no embolic event; shows suspected congenital abnormalities that could limit blood flow to the left posterior cerebral artery territory -Neck CTA unremarkable -Lipid panel wnl, HgbA1c pending -NIHSS, neuro checks, monitor on telemetry -PT/OT/ST consulted, pt passed bedside swallow, advanced diet -Neurology consulted, ordered brain MRA, EEG, Holter -Started on aspirin 81mg daily Hypertension: chronic, stable -BP borderline low, will hold patient's methyldopa for now -IV Vasotec prn Hx of Migraines: no current headache -monitor All other medical conditions stable, continue home medications as appropriate. DVT Prophylaxis: teds/SCDs Discussed Condition With Patient, patient's friend at bedside, RN, Dr. Philippe Attending Statement The exam, history, and the medical decision-making described in the above note were completed with the assistance of the mid-level provider. I reviewed and agree with the findings presented. I attest that I had a [id number] encounter with the patient on the same day, and personally performed and documented my assessment and findings in the medical record.patient seen and examined on date of service. says she is feeling alright now. consult neurology. close monitoring. appreciate assistance Problem Qualifiers (1) TIA (transient ischemic attack): Qualified Code: G45.9 - Transient cerebral ischemia, unspecified type Renita Malik PA-C Sep 03, 2016 09:22 Kan Philippe MD Sep 06, 2016 20:51
--- NOTE | 2016-09-03 10:00 | MB ---
cc: CARROL DIETZ MD DATE OF CONSULTATION 09/03/2016 REASON FOR CONSULTATION This is a 35-year-old right-handed woman with a history of hypertension. She started about a month ago in July where she all of a sudden had some arm and leg heaviness on the right side and some tingling on the right arm on and off. No headache associated with it. She saw her neurologist in [facility]. MRI of the brain and spinal cord she tells me was negative, not thought to have MS. No headache associated with that. Then yesterday about 03:45, it felt like her right eye was a bit droopy and she was she was heavy on the right face, arm and leg and then some twitching on the right face, arm and leg more so than the left leg and came into the ER. It lasted about two hours. She denies any headache to me. She had an episode about a year ago where her right arm went numb for a day or two and she was told she was allergic to cats at [employer] where she worked at that time. She at that time had a dark spot in the right eye which came on before the numbness in the arm but she never really had any headaches and although the ER notes she has a history of migraines, she never really had a bad throbbing headache or definite migraine headaches. No scintillations. ALLERGIES ERYTHROMYCIN AND SULFA MEDICATIONS 1. Vitamin D 2. Neurontin 300 t.i.d. 3. She is on hormones, Methyldopa and a water pills she tells me. SOCIAL HISTORY Not a smoker or a drinker. No drugs. Lives by herself. FAMILY HISTORY Negative cancer, seizure, or stroke. She works in [employer] at [employer]. REVIEW OF SYSTEMS Denies any diabetes, hypercholesterolemia, LA, stent, angioplasty A fib, Coumadin, renal, hepatic or pulmonary disease, thyroid disease, lupus, ulcer cancer, seizure or stroke. She has never had a miscarriage or blood clots in there is no family history of that. PHYSICAL EXAM On exam, afebrile, 77, 18, 110/62 in sinus rhythm. GENERAL: She is significantly obese. NECK: There are no carotid bruits. HEART: Regular rhythm. I did not detect a murmur. NEUROLOGIC: Pupils are equal. Visual ling are full. Extraocular movements intact without nystagmus. Face is symmetric with normal station. Tongue was midline. There is no drift. She had normal strength in the upper and lower extremities bilaterally. DTRs are trace throughout. Toes are downgoing bilaterally. Pinprick is diminished on the right face, arm and leg about 50% compared to the left. Proprioception is intact. Vibratory sense was diminished on the right compared to the left. The is not ataxic on [id number]. Speech is fluent. She is not aphasic. PAST MEDICAL HISTORY She was seen in this ER in June of this year for right facial numbness, right arm numbness. LABORATORY DATA CBC is normal, sed rate is 46. Urine drug screen negative. Coags normal. Basic metabolic profile has a normal glucose 69. LFTs are normal. Troponin is negative. CRP was actually elevated at 6 in June. Albumin only 3.1. LDL cholesterol was 88. ESR was 46 in June. She had a CTA of the neck done last night that was normal. She had a CTA of the head, right COMPUTER SERVICE TECHNICIAN off of the anterior circulation, and a CT scan of the brain was normal. MRI of the brain read as normal. Review of the MRI of the brain diffusion scan is normal. Flare image shows no evidence of any old infarcts or MS. No hemorrhage is noted. Sinuses look fine. On a CT of the head, the distal vertebrales and basilar looked normal. The right COMPUTER SERVICE TECHNICIAN does come strongly off the anterior circulation. It is a little hard to tell on the left COMPUTER SERVICE TECHNICIAN, but it feels very well and no significant carotid stenosis is noted. I would say with some of the slices it is hard to tell if there is any distal basilar stenosis. Sinuses appear to feel well on the venous side on the CTA. IMPRESSION Certainly a TIA could be considered versus a complicated acephalic migraine. No evidence for MS. We will do a hyper coag screen. I recommended she come off the hormones, take a baby aspirin a day. We will check an EEG with the twitching. Check an MRA [place] to see if we can get a better look at that and a hyper-coag screen and some additional blood work. We will recheck her CRP and sed rate in case she has any lupus or anything of that sort and I will be following her with you in the hospital. She is back to normal now except she does have that numbness on the left side. Electrocardiogram I note is preliminary negative at this time. MD OSCAR Roberts/KIKA /8:35 AM /9:32 AM
[2016-09-03] MEDS ORDERED: ENALAPRILAT 1.25 MG/ML VIAL IV PUSH PRN (10:15)
[2016-09-03] MEDS ORDERED: ACETAMINOPHEN 325 MG TAB PO PRN (10:15)
--- NOTE | 2016-09-03 11:05 | EC ---
Study Study Date:09/03/2016 STUDY CONCLUSIONS SUMMARY - Left ventricle: The cavity size was normal. Wall thickness was normal. Systolic function was normal. The estimated ejection fraction was in the range of 55% to 60%. Wall motion was normal; there were no regional wall motion abnormalities. - Aortic valve: Valve area: 2.14cm^2(VTI). Valve area: 1.84cm^2 (Vmax). If LV function is below 40, please consider prescribing an ACEI or ARB or document rationale for non-use. PROCEDURE DATA STUDY STATUS: Elective. Procedure: Transthoracic echocardiography. Image quality was good. Scanning was performed from the parasternal, apical, and subcostal acoustic windows. Study completion: The patient tolerated the procedure well. Transthoracic echocardiography. M-mode, complete 2D, complete spectral Doppler, and color Doppler. Height: Height: 65in. Weight: Weight: 274.4lb. Body mass index: BMI: 45.8kg/m^2. Body surface area: BSA: 2.26m^2. Patient status: Inpatient. CARDIAC ANATOMY LEFT VENTRICLE: The cavity size was normal. Wall thickness was normal. Systolic function was normal. The estimated ejection fraction was in the range of 55% to 60%. Wall motion was normal; there were no regional wall motion abnormalities. AORTIC VALVE: Trileaflet; normal thickness leaflets. Doppler: Transvalvular velocity was within the normal range. There was no stenosis. No regurgitation. Valve area: 2.14cm^2(VTI). Indexed valve area: 0.95cm^2/m^2 (VTI). Valve area: 1.84cm^2 (Vmax). Indexed valve area: 0.81cm^2/m^2 (Vmax). Mean gradient: 3mm Hg (S). AORTA: Aortic root: The aortic root was normal in size. MITRAL VALVE: Structurally normal valve. Doppler: Transvalvular velocity was within the normal range. There was no evidence for stenosis. Trace regurgitation. Peak gradient: 2mm Hg (D). LEFT ATRIUM: The atrium was normal in size. RIGHT VENTRICLE: The cavity size was normal. Wall thickness was normal. PULMONIC VALVE: Doppler: Transvalvular velocity was within the normal range. There was no evidence for stenosis. No regurgitation. TRICUSPID VALVE: Structurally normal valve. Doppler: Transvalvular velocity was within the normal range. Trace regurgitation. PULMONARY ARTERY: The main pulmonary artery was normal-sized. Systolic pressure was within the normal range. RIGHT ATRIUM: The atrium was normal in size. PERICARDIUM: There was no pericardial effusion. SYSTEMIC VEINS: Inferior vena cava: The vessel was normal in size. Patient weight: 274.4lb _Ejection fraction:_ 65-75% _Fractional shortening:_ 32% up to 5Kg 5-11.5Kg 11.6-22.9Kg 23-45Kg 45-57Kg Aortic Root 7-13 <17 13-22 17-27 17-27 LA diam 6-13 <23 24-38 33-47 37-40 RVID 10-17 7-15 7-15 7-18 8-17 LVIDd 12-22 <32 24-38 33-47 37-40 LVPW 2-4 3-6 5-7 6-8 7-8 IVS 2-4 3-6 5-7 6-8 7-8 BASIC MEASUREMENTS ADULT NORMAL Left ventricle LV internal dimension, ED, chordal 43.2 mm 43-52 level, PLAX LV internal dimension, ES, chordal 32.1 mm 23-38 level, PLAX Fractional shortening, chordal level, *26 % >29 PLAX LV posterior wall thickness, ED 9.38 mm IVS/LVPW ratio, ED 1 <1.3 Ventricular septum Septal thickness, ED 9.39 mm Aortic valve Leaflet separation 20 mm 15-26 Aorta Root diameter, ED 23 mm Left atrium Anterior-posterior dimension 34 mm Anterior-posterior dimension index 1.5 cm/m^2 <2.2 BASIC MEASUREMENTS ADULT NORMAL Aortic valve Leaflet separation 20 mm 15-26 DOPPLER MEASUREMENTS ADULT NORMAL Main pulmonary artery Pressure, S 26 mm Hg =30 Aortic valve Peak velocity, S 114 cm/s Mean velocity, S 77.3 cm/s VTI, S 20 cm Mean gradient, S 3 mm Hg Valve area, VTI 2.14 cm^2 Valve area index, VTI 0.95 cm^2/m^2 Valve area, Vmax 1.84 cm^2 Valve area index, Vmax 0.81 cm^2/m^2 Mitral valve Peak E-wave velocity 76 cm/s Peak A-wave velocity 58.2 cm/s Deceleration time 151 ms 150-230 Peak gradient, D 2 mm Hg Peak E/A ratio 1.3 Tricuspid valve Regurgitant peak velocity 202 cm/s Peak RV-RA gradient, S 16 mm Hg Maximal regurgitant velocity 202 cm/s Systemic veins Estimated CVP 10 mm Hg Right ventricle RV pressure, S 26 mm Hg <30 LEGEND: Mean values are shown as u=mean value. Asterisk (*) mcfarland values outside specified normal range. Prepared and signed by Leo Roldan [id number]
[2016-09-03] MEDS ORDERED: GABAPENTIN 100 MG CAP PO SCH (13:00)
[2016-09-03 13:38] LABS: FREE T4 1.01 NG/DL (0.76-1.46); TOTAL PROTEIN SPE 5.7 GM/DL (6.0-7.6)
[2016-09-03] MEDS: GABAPENTIN 100 MG CAP PO SCH ×2 (13:56→18:35)
[2016-09-03 13:57] LABS: RHEUMATOID FACTOR TRIGGER LESS THAN 10.0 IU/ML (0.0-14.9)
--- NOTE | 2016-09-03 14:26 | RADRPT ---
EXAM DATE/TIME: 09/03/2016 11:29 [place] COMPARISON: No previous studies available for comparison. INDICATIONS : CVA. Right facial droop. MEDICAL HISTORY : Hypertension. SURGICAL HISTORY : Right ankle. ENCOUNTER: Subsequent ACUITY: 2 day PAIN SCORE: 0/10 LOCATION: head. Please note a normal MRA of the brain does not entirely exclude the possibility of a small aneurysm, nor the possibility of distal intracranial vessel disease. TECHNIQUE: 3D time of flight MRA was performed. Source images, multiplanar STS MIP, and 3D volume MIP reconstru ctions were reviewed. FINDINGS: The distal internal carotid arteries are patent bilaterally. There are codominant patent vertebral ar teries bilaterally. There is adequate visualization of the major intracranial arteries. 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 Anterior communicating arter y is patent. [place] is otherwise complete with patent posterior communicating arteries bila terally. The posterior cerebral arteries are well-opacified and normal in appearance. Basilar artery is widely patent. No evidence for significant aneurysm or vascular malformation. CONCLUSION: 1. Improved visualization of the major intracranial arteries. 2. 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 Otherwise, the [place] is complete with patent posterior communicating arteries bilaterally. Bro Willett MD on September 03, 2016 at 13:33 Board Certified Radiologist. This report was verified electronically.
[2016-09-03 17:12] LABS: HEMOGLOBIN A1a 0.9 %; HEMOGLOBIN A1b 0.8 %; HEMOGLOBIN Ao 87.6 %; HEMOGLOBIN F 0.9 %; HEMOGLOBIN LA1C 1.5 %; HEMOGLOBIN P3 3.1 %
[2016-09-03 21:37] LABS: ALBUMIN SPE 3.06 GM/DL (3.50-5.00); ALPHA 1 GLOBULIN 0.28 GM/DL (0.11-0.29); ALPHA 2 GLOBULIN 0.88 GM/DL (0.22-1.00); BETA GLOBULINS (SPE) 0.71 GM/DL (0.53-1.03)
[2016-09-04 03:50] VITALS: BP 91/54; PULSE 67; RESP 20; TEMP 97.5; O2SAT 95
[2016-09-04 03:52] VITALS: BP 111/59; PULSE 77; RESP 20; TEMP 98.1; O2SAT 95
[2016-09-04 07:20] VITALS: BP 142/67; PULSE 91; RESP 20; TEMP 97.7; O2SAT 96
--- NOTE | 2016-09-04 08:47 | HHI.PR ---
Objective Vital Signs Date Time Temp Pulse Resp B/P Pulse Ox O2 Delivery O2 Flow Rate FiO2 09/04/16 07:20 97.7 91 20 142/67 96 09/04/16 03:52 98.1 77 20 111/59 95 09/04/16 03:50 97.5 67 20 91/54 95 09/03/16 23:58 98.1 80 20 118/70 96 09/03/16 21:00 97 09/03/16 19:23 99.3 90 20 132/75 96 09/03/16 17:16 88 129/69 09/03/16 15:30 98.9 99 15 171/86 95 09/03/16 09:15 91 Result Diagram: 09/02/16 1715 09/02/16 171 Other Results mra cow and brain mri neg Objective Remarks awake nad / nl speech 08/07 Assessment and Plan Assessment and Plan imp echo nl guillen neg hyper pend eeg pend if eeg neg she can dc on asa and calan sr 120 for possible acephalgic migraine dc hormones fu holter fu her neuro o/p Bin Ordonez MD Sep 04, 2016 08:47
[2016-09-04] MEDS ORDERED: VERAPAMIL HCL 120 MG SUSTAINED RELEASE TAB PO SCH (09:00)
[2016-09-04] MEDS: SODIUM CHLORIDE 0.9% FLUSH 5 ML FLUSH IV FLUSH SCH (09:26)
[2016-09-04] MEDS: GABAPENTIN 100 MG CAP PO SCH ×2 (09:27→13:10)
[2016-09-04] MEDS: ASPIRIN EC 81 MG TABEC PO SCH (09:27)
[2016-09-04 10:48] LABS: RAPID PLASMA REAGIN SCREEN NON-REACTIVE (NON-REACTVE)
[2016-09-04] MEDS: SODIUM CHLOR 0.9% 1000 ML INJ 1,000 ML IV SCH (11:47)
[2016-09-04 12:00] VITALS: BP 127/76; PULSE 85; RESP 20; TEMP 98; O2SAT 95
[2016-09-04 13:36] LABS: ANA SCREEN POS (NEG)
[2016-09-04] MEDS ORDERED: VERA1TAB9 PO (15:10)
[2016-09-04] MEDS ORDERED: ASPI-99 PO (15:10)
--- NOTE | 2016-09-04 15:23 | HHI.PR ---
Subjective Remarks Follow-up for transit neuro deficits. Friend at bedside. The patient reports that the numbness in her right arm has resolved, but still has some tingling. She states that the weakness in her right arm has improved some but is still present. She denies any lower extremity weakness paresthesias. She states her headache resolved last night with Tylenol. Patient does follow with a neurologist as outpatient for migraines. She has been ambulating here with no difficulties. She denies any chest pain, shortness of breath, nausea, vomiting. Neurologist reading EEGs was paged and EEG was normal per RN. Objective Vitals Vital Signs Date Time Temp Pulse Resp B/P Pulse Ox O2 Delivery O2 Flow Rate FiO2 09/04/16 12:00 98.0 85 20 127/76 95 09/04/16 07:20 97.7 91 20 142/67 96 09/04/16 03:52 98.1 77 20 111/59 95 09/04/16 03:50 97.5 67 20 91/54 95 09/03/16 23:58 98.1 80 20 118/70 96 09/03/16 21:00 97 09/03/16 19:23 99.3 90 20 132/75 96 09/03/16 17:16 88 129/69 09/03/16 15:30 98.9 99 15 171/86 95 Result Diagram: 09/02/16 1715 09/02/16 1715 Imaging Last Impressions Head Magnetic Resonance Angiography 09/03/16 0842 Signed Impressions: Service Date/Time: September 11:29 - CONCLUSION: 1. Improved visualization of the major intracranial arteries. 2. 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 Otherwise, the [place] is complete with patent posterior communicating arteries bilaterally. Bro Willett MD Neck CTA 09/02/16 0000 Signed Impressions: Service Date/Time: Friday, September 02, 2016 18:05 - CONCLUSION: Negative exam. Gian Jones MD Head CTA 09/02/16 0000 Signed Impressions: Service Date/Time: Friday, September 02, 2016 18:05 - CONCLUSION: 1. No embolic event to explain current clinical symptoms. 2. 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 3. The left P1 segment also appears to be somewhat diminutive and irregular with a diminutive left posterior communicating artery which is probably congenital. However, the combination could limit blood flow to the left posterior cerebral artery territory. Again, anatomic detail is somewhat limited and findings could be confirmed with standard angiography if clinically warranted. Gian Jones MD Head CT 09/02/16 0000 Signed Impressions: Service Date/Time: Friday, September 02, 2016 17:20 - CONCLUSION: No acute intracranial findings. Neftali Quigley MD Brain MRI 09/02/16 0000 Signed Impressions: Service Date/Time: Friday, September 02, 2016 20:53 - CONCLUSION: Normal examination. Geoff Mckeon Jr., MD Objective Remarks GENERAL: Well-developed well-nourished. Morbidly obese. In no acute distress. SKIN: Warm and dry. No lesions noted. HEENT: Normocephalic. Pupils equal and round. Mucous membranes pink and moist. CARDIOVASCULAR: Regular rate and rhythm. No murmur appreciated. RESPIRATORY: No accessory muscle use. Clear to auscultation. Breath sounds equal bilaterally. GASTROINTESTINAL: Abdomen soft, non-tender, nondistended. Bowel sounds x4. MUSCULOSKELETAL: No obvious deformities. No clubbing or cyanosis. No edema. NEUROLOGICAL: Awake and alert. Moves upper and lower extremities spontaneously. Normal speech. Strength 5/5 in all extremities except for 4.5/5 in the right upper extremity. PSYCHIATRIC: Appropriate mood and affect; insight and judgment normal. A/P Problem List: (1) TIA (transient ischemic attack) ICD Code: G45.9 Status: Acute (2) Complicated migraine ICD Code: G43.109 Status: Acute (3) Paresthesias ICD Code: R20.2 Status: Acute Assessment and Plan 35-year-old female with history of migraines and hypertension presents with acute onset of neurological deficit with right face, arm, leg heaviness and weakness. Acute Neurological Deficit: TIA vs complex migraine, rule out CVA, seizure. Stroke alert called upon arrival, neurology did not recommend TPA due to complicated history of migraines. S/p aspirin 325mg, Symptoms improved. Reviewed: Head CT with no acute findings. Neck CTA unremarkable. Lipid panel wnl , HgbA1c 5.0. Brain MRI normal. Brain MRA with congenitally hypoplastic right A1 segment, otherwise complete cervical bolus with patent posterior communicating arteries bilaterally. -NIHSS, neuro checks, monitor on telemetry -PT/OT/ST consulted, pt passed bedside swallow, advanced diet -Neurology consulted, discussed with Dr. Ordonez, suspects TIA vs complex migraine -Hypercoagulable workup in progress, per neurology this can be followed up with patient's outpatient neurologist -Per email from Dr. Sanchez, EEG normal, -Holter monitoring -Started on aspirin 81mg daily -Started on verapamil for migraine prophylaxis Hypertension: chronic, stable -Methyldopa changed to verapamil as above DVT Prophylaxis: teds/SCDs Discharge Planning Cleared from neurology perspective for discharge Discharge patient to home Condition on discharge: Improved Heart healthy Diet as tolerated Regular activity Rx written: Verapamil, aspirin Follow-up with primary care physician and neurology Problem Qualifiers (1) TIA (transient ischemic attack): Qualified Code: G45.9 - Transient cerebral ischemia, unspecified type Maximiliano Poe Sep 04, 2016 15:23
--- NOTE | 2016-09-04 15:41 | MG ---
cc: ELFEGO SANCHEZ MD Lab No: Date: : 1980 Sex: F REFERRING PHYSICIAN Dr. Ordonez READING PHYSICIAN Dr. Sanchez MEDICAL HISTORY Twitching of bilateral lower extremities, heaviness of the right arm and leg, history of migraine headaches and asthma. MEDICATION Aspirin. DESCRIPTION When the patient was awake the background activity was 9-10 Hz alpha bilateral and symmetrical superimposed by excess beta activity. During the recording the patient became drowsy with slowing and drop out of the posterior background rhythm, replaced by slow theta activity and the patient transitioned to stage II sleep and appearance of vertex wave K-complexes and sleep spindles. Photic stimulation did not elicit a driving response. Hyperventilation did not make a change in the EEG. There were no electrographic seizures or epileptiform discharges noted during the recording. INTERPRETATION This is a normal awake and asleep EEG recording. Excess beta is a nonspecific finding that may be related to medication adverse effects such as benzos and barbiturates. Absence of electrographic seizures or epileptiform discharges does not exclude the diagnosis of epilepsy. Clinical correlation is recommended. Elfego Sanchez MD RGO/BT /2:32 PM /3:26 PM
--- NOTE | 2016-09-05 14:32 | HM ---
Date Performed: 09/03/2016 Time Performed: 15:08:00 HOOKUP DATE: 09/03/16 03:08:00 PM [facility] ANALYSIS START TIME: 09/03/2016 3:13:00 PM ANALYSIS END TIME: 09/04/2016 3:17:00 PM PATIENT AGE: 35 PATIENT HEIGHT PATIENT WEIGHT DRUG LIST PATIENT DIAGNOSIS: TIA TEST NARRATIVE: The patient's average heart rate was 90 BPM. Heart rates greater than 120 B PM were noted 1% of the time. No episodes of bradycardia were noted. No pauses exceeding 2.0 sec onds were noted. 1 ventricular ectopics, which represented < 1% of the total beat count, were not ed. The highest ventricular ectopic frequency occurred from 05:00 AM to 06:00 AM Fri. During this t eber 1 VE(s) occurred. Ventricular ectopics were observed as 1 isolated beat(s) only. No couplets or runs were noted. 2 supraventricular ectopics, which represented < 1% of the total beat count, we re noted. The highest supraventricular ectopic frequency occurred from 10:00 PM to 11:00 PM Sh[facility]. Du ring this time 1 SVE(s) occurred. No episodes of ST depression (defined as -1.0 mm or more) were noted in channel 1. No episodes of ST depression (defined as -1.0 mm or more) were noted in channel 2. No episodes of ST depression (defined as -1.0 mm or more) were noted in channel 3. TEST INTERPRETATION: Patient has minimal atrial ventricular ectopy and is totally benign. Holter monitor with no evidence of significant arrhythmia or heart block or any symptoms. No patient diary included. Signed by : Antoni auguste
[2016-09-05 17:51] LABS: VITAMIN B6 LESS THAN 2.0 ng/mL (2.1-21.7)
[2016-09-05 19:52] LABS: THROMBIN TIME FOR LA ND sec (13-19)
[2016-09-07 13:51] LABS: ANA TITER QUANT 1:40 (NEG)
== END 2016-09-04 17:35 | disposition home or self-care (01) ==
LOC: NEPC 16:35 → NEDA 22:01 → NEPHCDU 23:00
PROVIDERS: ADMIT Internal Medicine; ATTEND Internal Medicine
DX: G43.109 Migraine with aura, not intractable, without status migrainosus (principal); R29.818 Other symptoms and signs involving the nervous system; J45.909 Unspecified asthma, uncomplicated; I10 Essential (primary) hypertension; H02.401 Unspecified ptosis of right eyelid; Z87.891 Personal history of nicotine dependence
CPT/HCPCS: 70450; 70496; 70498; 70544; 70551; 80053; 80061; 80307; 81240; 81241; 82435; 82550; 82565; 82607; 82746; 82947; 82948; 83036; 83921; 84132; 84165; 84207; 84295; 84425; 84439; 84443; 84484; 84520; 84703; 85025; 85240; 85300; 85303; 85306; 85597; 85610; 85613; 85652; 85730; 86038; 86039; 86140; 86147; 86430; 86592; 92523; 92610; 93005; 93225; 93226; 93306; 95819; 96374; 96375; 97110; 97162; 97165; 99285; G0378; G8987; G8988; G8996; G8997; G8998; G9162; G9163; G9164; J0780; J1200; J7030; Q9967

== ENCOUNTER 2016-09-15 11:58 | Inpatient (IN) | payer OTHER ==
[~2016-09-15] VITALS: Ht 170.2 cm; Wt 126.2 kg
[2016-09-15] VITALS (7 sets, daily range): BP systolic 120–146; BP diastolic 67–85; PULSE 84–98; RESP 16–25; TEMP 97.8–98.5; O2SAT 96–100
[~2016-09-15 11:58] MED LIST changes: +ASPI-99 PO; +CHOL1CAP34 PO; +GABA100C4 PO; +GABA300S; +VERA1TAB9 PO
[2016-09-15] MEDS ORDERED: SODIUM CHLOR 0.9% 1000 ML INJ 1,000 ML IV ONE (12:03)
--- NOTE | 2016-09-15 12:23 | PD ---
HPI Chief Complaint: Stroke Alert Time Seen by Provider: 12:03 Travel History International Travel<30 days: No Contact w/Intl Traveler<30days: No Traveled to known affect area: No History of Present Illness HPI 35-year-old female with history of lupus, hypertension, previous TIAs with the last one 2 weeks ago, presents to the ER today for 1 hour history of right sided facial drooping, right sided arm and leg weakness and numbness in the arm and legs. She is complaining currently of a headache. She denies any chest pains, shortness of breath, or any of symptoms. She states that her TIA symptoms were very similar. She is on regular aspirin and has taken it this morning. EMS called a stroke alert. Modifying Factors: None Associated Signs & Symptoms: Right sided weakness and right facial droop starting an hour prior to arrival Risk Factors: Previous TIA PFSH Past Medical History Hx Anticoagulant Therapy: Yes (asa) Asthma: Yes Cardiovascular Problems: Yes Cerebrovascular Accident: Yes Diminished Hearing: No Hypertension: Yes Respiratory: Yes Migraines: Yes ?: Unknown Social History Alcohol Use: No Tobacco Use: No Substance Use: No Allergies-Medications (Allergen,Severity, Reaction): Coded Allergies: Erythromycin (Verified Allergy, Severe, rash, 09/15/16) Sulfa (Verified Allergy, Severe, rash, 09/15/16) Reported Meds & Prescriptions Reported Meds & Active Scripts Active Verapamil ER (Verapamil HCl) 120 Mg Tab 120 Mg PO DAILY Adult Aspirin EC Low Strength (Aspirin) 81 Mg Tabec 81 Mg PO DAILY Reported Vitamin D3 (Cholecalciferol) 50,000 Unit Cap 50,000 Units PO Wed Gabapentin 100 Mg Cap 300 Mg PO TID Review of Systems Except as stated in HPI: all other systems reviewed are Neg Physical Exam Narrative GENERAL: Well-developed young white female patient currently in mild distress. Awake and oriented 3. SKIN: Focused skin assessment warm/dry. HEAD: Atraumatic. Normocephalic. EYES: Pupils equal and round. No scleral icterus. No injection or drainage. ENT: No nasal bleeding or discharge. Mucous membranes pink and moist. NECK: Trachea midline. No JVD. CARDIOVASCULAR: Regular rate and rhythm. No murmur appreciated. RESPIRATORY: No accessory muscle use. Clear to auscultation. Breath sounds equal bilaterally. GASTROINTESTINAL: Abdomen soft, non-tender, nondistended. Hepatic and splenic margins not palpable. MUSCULOSKELETAL: No obvious deformities. No clubbing. No cyanosis. No edema. NEUROLOGICAL: Awake and alert. Normal speech. Notable right facial droop. Right pronator drift of both arm and leg. PSYCHIATRIC: Appropriate mood and affect; insight and judgment normal. Data Data Last Documented VS Vital Signs Date Time Temp Pulse Resp B/P Pulse Ox O2 Delivery O2 Flow Rate FiO2 09/15/16 12:12 97.8 86 18 127/85 99 09/15/16 12:04 Room Air Orders Diet Npo (09/15/16 Lunch) Activity Bed Rest (09/15/16 ) Electrocardiogram (09/15/16 ) I-Stat Creatinine (09/15/16 12:03) I-Stat Profile (09/15/16 12:03) Prothrombin Time / Inr (Pt) (09/15/16 12:03) Act Partial Throm Time (Ptt) (09/15/16 12:03) Complete Blood Count With Diff (09/15/16 12:03) Fibrinogen (09/15/16 12:03) Creatine Kinase (Cpk) (09/15/16 12:03) Troponin I (09/15/16 12:03) Ua Includes Microscopic (09/15/16 12:03) Drug Screen, Random Urine (09/15/16 12:03) Type And Screen (09/15/16 12:03) Ct Brain W/O Iv Contrast(Rout) (09/15/16 ) Beta Hcg (Quant/Titer) (09/15/16 12:03) Consult Neurology (09/15/16 ) Blood Glucose (09/15/16 12:03) Ecg Monitoring (09/15/16 12:03) Neuro Checks Q2HX12,Q4H (09/15/16 12:03) Nursing Bedside Swallow Assess .ONCE (09/15/16 12:03) Iv Access Insert/Monitor (09/15/16 12:03) NPO (09/15/16 12:03) Oximetry (09/15/16 12:03) Oxygen Administration (09/15/16 12:03) Sodium Chlor 0.9% 1000 Ml Inj (Ns 1000 M (09/15/16 12:03) Resp Oxygen Glenn C Titrat 1-4 L (09/15/16 12:03) Cath For Specimen (09/15/16 12:03) Cta Neck W Iv Contrast W 3d (09/15/16 12:30) ^ Call Pharmacy (09/15/16 12:48) Nih Stroke Scale - Nihss .ONCE (09/15/16 12:48) Urinary Catheter Management TERESA.Q8H (09/15/16 12:48) Urinary Catheter Insert/Apply (09/15/16 12:48) Anticoagulant Alert (09/15/16 12:48) ^ Post Infusion Restrictions (09/15/16 12:48) ^ Medication Alert (09/15/16 12:48) Vital Signs (Adult) .As directed (09/15/16 12:48) Notify Dr: Blood Pressure (09/15/16 12:48) ^ Medication Alert (09/15/16 12:48) Alteplase Bolus (Activase Bolus) (09/15/16 13:00) Alteplase Drip (Activase Drip) (09/15/16 13:00) Sodium Chloride 0.9% Inj (Ns Inj) (09/15/16 13:00) [facility] (09/15/16 13:00) Resp Oxygen Glenn C Titrat 1-4 L (09/15/16 ) Ct Brain W/O Iv Contrast(Rout) (09/16/16 ) Ed Urine Pregnancytest Poc (09/15/16 13:06) Cta Brain W Iv Contrast W 3d (09/15/16 12:30) Labs Laboratory Tests Test 09/15/16 09/15/16 12:00 12:30 White Blood Count 7.0 TH/MM3 Red Blood Count 4.76 MIL/MM3 Hemoglobin 12.8 GM/DL Bedside Hemoglobin 13.3 G/DL Hematocrit 39.1 % Bedside Hematocrit 39.0 % Mean Corpuscular Volume 82.2 FL Mean Corpuscular Hemoglobin 26.9 PG Mean Corpuscular Hemoglobin 32.7 % Concent Red Cell Distribution Width 14.9 % Platelet Count 331 TH/MM3 Mean Platelet Volume 7.7 FL Neutrophils (%) (Auto) 55.8 % Lymphocytes (%) (Auto) 35.0 % Monocytes (%) (Auto) 8.6 % Eosinophils (%) (Auto) 0.0 % Basophils (%) (Auto) 0.6 % Neutrophils # (Auto) 3.9 TH/MM3 Lymphocytes # (Auto) 2.5 TH/MM3 Monocytes # (Auto) 0.6 TH/MM3 Eosinophils # (Auto) 0.0 TH/MM3 Basophils # (Auto) 0.0 TH/MM3 CBC Comment DIFF FINAL Differential Comment Prothrombin Time 10.8 SEC Prothromb Time International 1.0 RATIO Ratio Activated Partial 27.2 SEC Thromboplast Time Fibrinogen 392 mg/dL Bedside Sodium 138 MMOL/L Bedside Potassium 4.4 MMOL/L Bedside Chloride 101 MMOL/L Bedside Blood Urea Nitrogen 15 MG/DL Bedside Creatinine 0.9 MG/DL Bedside Glucose 89 MG/DL Total Creatine Kinase 101 U/L Troponin I LESS THAN 0.02 NG/ML Human Chorionic Gonadotropin, LESS THAN 1 Quant MIU/ML Blood Type O POSITIVE Antibody Screen NEGATIVE Blood Bank Comment Urine Color YELLOW Urine Turbidity CLEAR Urine pH 7.0 Urine Specific [place] 1.020 Urine Protein NEG mg/dL Urine Glucose (UA) NEG mg/dL Urine Ketones NEG mg/dL Urine Occult Blood NEG Urine Nitrite NEG Urine Bilirubin NEG Urine Urobilinogen LESS THAN 2.0 MG/DL Urine Leukocyte Esterase NEG Urine RBC 1 /hpf Urine Squamous Epithelial 1 /hpf Cells Urine Mucus FEW /lpf Urine Opiates Screen NEG Urine Barbiturates Screen NEG Urine Amphetamines Screen NEG Urine Benzodiazepines Screen NEG Urine Cocaine Screen NEG Urine Cannabinoids Screen NEG MDM Medical Decision Making Medical Screen Exam Complete: Yes Emergency Medical Condition: Yes Medical Record Reviewed: Yes Interpretation(s) EKG shows NSR, no ST elevation or depression, and no arrhythmias. No significant T-wave inversions. Last [address] 09/15/16 0000 Signed Impressions: Service Date/Time: Thursday, September 15, 2016 12:13 - CONCLUSION: 1. No acute intracranial abnormality. Michael Atkins MD Laboratory Tests Test 09/15/16 09/15/16 12:00 12:30 Mean Corpuscular Hemoglobin 26.9 PG (27.0-34.0) Monocytes (%) (Auto) 8.6 % (0.0-8.0) Fibrinogen 392 mg/dL (227-377) Troponin I LESS THAN 0.02 NG/ML (0.02-0.05) Urine Mucus FEW /lpf (OCC) Differential Diagnosis Right facial droop, right sided weaknessCVA versus ICH versus metabolic issues versus complicated migraine Narrative Course EKG did not show any signs of dysrhythmias. Blood sugar is within normal limits. CAT scan the brain was negative for any signs of acute intracranial processes. An age stroke score is 6. The case was discussed with Dr. Talley of neurology who states that the patient would make a TPA candidate. Wrist and benefits of TPA has been discussed with patient including risks of acute intracranial bleed or other bleeding that can occur with TPA. Patient states understanding, why me to discuss the same with patient's dad at length, and agrees to get the TPA. Activase ordered by me. Case was then discussed with casino change attendant, Dr. Pham, for admission. Aggregate critical care time was 35 minutes. Time to perform other separately billable procedures was not included in the critical care time. My time did not include minutes spent treating any other patients simultaneously or on activities that did not directly contribute to the patient's treatment. The services I provided to this patient were to treat and/or prevent clinically significant deterioration that could result in: Worsening Stroke, ICH, I provided critical care services requiring my management, as noted below: Chart data review, documentation time, medication orders and management, vital sign assessments/reviewing monitor data, ordering and reviewing lab tests, ordering and interpreting/reviewing x-rays and diagnostic studies, care of the patient and discussion of the patient with the admitting physicians. Diagnosis Primary Impression: Stroke (cerebrum) Additional Impression: Received intravenous tissue plasminogen activator (tPA) in emergency department Admitting Information Admitting Physician Requests: it Devang Mahan MD Sep 15, 2016 12:23
[2016-09-15 12:28] LABS: AUTOMATED NEUTROPHIL # 3.9 TH/MM3 (1.8-7.7); BASOPHIL % 0.6 % (0.0-2.0); HEMATOCRIT 39.1 % (35.0-46.0); HEMO FLAGS DIFF FINAL; I-STAT POTASSIUM 4.4 MMOL/L (3.5-4.9); I-STAT SODIUM 138 MMOL/L (138-146); LYMPHOCYTE # 2.5 TH/MM3 (1.0-4.8); MEAN CELL VOLUME 82.2 FL (80.0-100.0); MEAN CORPUSCULAR HEMOGLOBIN 26.9 PG (27.0-34.0); MEAN CORPUSCULAR HGB CONC 32.7 % (32.0-36.0); MONO % 8.6 % (0.0-8.0); NEUT % 55.8 % (16.0-70.0); PLATELET COUNT 331 TH/MM3 (150-450); RED BLOOD COUNT 4.76 MIL/MM3 (4.00-5.30); RED CELL DISTRIBUTION WIDTH 14.9 % (11.6-17.2)
--- NOTE | 2016-09-15 12:28 | RADRPT ---
EXAM DATE/TIME: 09/15/2016 12:13 [facility] COMPARISON: CTA CAROTID ARTERIES W 3D RECON, September 02, 2016, 18:05. INDICATIONS : Stoke alert. Right arm and leg weakness. Slurred speech. RADIATION DOSE: 56.35 CTDIvol (mGy) This report was called by Dr. Quintin Atkins to DR. Siddiqi at 1215 MEDICAL HISTORY : Non-responsive. SURGICAL HISTORY : Non-responsive. ENCOUNTER: Initial ACUITY: 1 day PAIN SCALE: Non-responsive LOCATION: cranial TECHNIQUE: Multiple contiguous axial images were obtained of the head. Using automated exposure control and adj ustment of the mA and/or kV according to patient size, radiation dose was kept as low as reasonably a chievable to obtain optimal diagnostic quality images. FINDINGS: CEREBRUM: The ventricles are normal in size and configuration. No acute hemorrhage is seen. No findings to alexander lluvia acute cortical infarction are evident by CT. No mass lesion is identified. POSTERIOR FOSSA: The cerebellum and brainstem are intact. The 4th ventricle is midline. The cerebellopontine angle i s unremarkable. EXTRACRANIAL: The visualized portion of the orbits is intact. SKULL: The calvaria is intact. No evidence of skull fracture. CONCLUSION: 1. No acute intracranial abnormality. Michael Atkins MD on September 15, 2016 at 12:21 Board Certified Radiologist. This report was verified electronically.
[2016-09-15 12:38] LABS: APTT (PATIENT) 27.2 SEC (24.3-30.1); PROTHROMBIN TIME - PATIENT 10.8 SEC (9.8-11.6)
[2016-09-15] MEDS ORDERED: ALTEPLASE DRIP 81 MG in SYRINGE/BAG 1 EA IV ONE (13:00)
[2016-09-15] MEDS ORDERED: SODIUM CHLORIDE 0.9% 50 ML BAG IVF ONE (13:00)
[2016-09-15] MEDS ORDERED: MISCELLANEOUS NURSING INFORMATION XX PRN (13:00)
[2016-09-15] MEDS ORDERED: ALTEPLASE BOLUS 9 MG/9 ML SYR IV ONE (13:00)
[2016-09-15 13:05] LABS: BLOOD, URINE NEG (NEG); GLUCOSE,URINE NEG (NEG); KETONE, URINE NEG (NEG); MUCUS URINE FEW /lpf (OCC); NITRITE,URINE NEG (NEG); SQUAMOUS EPITHELIAL CELL URINE 1 /hpf (0-5); URINE COLOR YELLOW (YELLW/STRAW)
[2016-09-15 13:10] LABS: AMPHETAMINE, URINE NEG (NEG); BARBITURATES, URINE NEG (NEG); COCAINE, URINE NEG (NEG)
[2016-09-15 13:27] LABS: BETA HCG QUANT LESS THAN 1 MIU/ML (0-5); CREATINE KINASE 101 U/L (26-192)
[2016-09-15] MEDS ORDERED: niCARdipine INJ 25 MG in SODIUM CHLOR 0.9% 250 ML INJ 250 ML IV SCH (13:30)
[2016-09-15] MEDS ORDERED: SODIUM CHLORIDE 0.9% FLUSH 5 ML FLUSH IV FLUSH PRN (13:30)
[2016-09-15] MEDS ORDERED: DEXTROSE 50% IN WATER 50 ML VIAL(D50) IV PUSH PRN (13:30)
[2016-09-15] MEDS ORDERED: GLUCAGON 1 MG/ML VIAL OTHER PRN (13:30)
[2016-09-15] MEDS ORDERED: LABETALOL HCL 100 MG/20 ML VIAL IV PRN (13:30)
[2016-09-15] MEDS ORDERED: IOHEXOL 350 MG/ML 10 ML VIAL (for RAD DIAG) IV ONE ×2 (13:49→14:18)
[2016-09-15] MEDS: SODIUM CHLOR 0.9% 1000 ML INJ 1,000 ML IV SCH (14:19)
--- NOTE | 2016-09-15 14:20 | RADRPT ---
EXAM DATE/TIME: 09/15/2016 13:44 [facility] COMPARISON: CT BRAIN W/O CONTRAST, September 15, 2016, 12:13. INDICATIONS : Stroke alert, right sided weakness and facial droop. Slurred speech. IV CONTRAST: 75 cc Omnipaque 350 (iohexol) IV ; Cumulative dose for multiple exams. RADIATION DOSE: 17.59 CTDIvol (mGy) ; Combined studies MEDICAL HISTORY : Cardiovascular disease. Hypertension. SURGICAL HISTORY : None. ENCOUNTER: Initial ACUITY: 1 day PAIN SCALE: 0/10 LOCATION: neck Elevated flow velocities and ICA/CCA ratios have been found to correlate with increased degrees of vessel stenosis, calculated as percentage of diameter relative to a normal segment of distal ICA/CCA. TECHNIQUE: Volumetric scanning was performed using a multirow detector CT scanner. The data was post processed with a variety of visualization algorithms including full-volume maximum intensity projection, multip lanar sliding thin-slab reformation, curved-planar reformation, and surface-rendering techniques. Us ing automated exposure control and adjustment of the mA and/or kV according to patient size, radiatio n dose was kept as low as reasonably achievable to obtain optimal diagnostic quality images. FINDINGS: AORTIC ARCH: There is a three-vessel origin of the great vessels from the aorta. No evidence of ostial narrowing. RIGHT CAROTID: The common carotid artery is intact. The carotid bulb has a normal configuration without ulceration o r narrowing. The internal carotid artery lumen is smooth without stenosis. The external carotid demi ry is intact. LEFT CAROTID: The common carotid artery is intact. The carotid bulb has a normal configuration without ulceration or narrowing. The internal carotid artery lumen is smooth without stenosis. The external carotid ar deshawn is intact. VERTEBRALS: The vertebral arteries have a symmetric diameter. No stenotic lesions are seen. CONCLUSION: 1. Negative examination. Michael Atkins MD on September 15, 2016 at 14:14 Board Certified Radiologist. This report was verified electronically.
--- NOTE | 2016-09-15 14:50 | RADRPT ---
EXAM DATE/TIME: 09/15/2016 13:45 [facility] COMPARISON: CTA BRAIN W 3D RECON, September 02, 2016, 18:05. INDICATIONS : Stroke alert, right sided weakness and facial droop. Slurred speech. IV CONTRAST: 75 cc Omnipaque 350 (iohexol) IV ; Cumulative dose for multiple exams. RADIATION DOSE: 17.59 CTDIvol (mGy) ; Combined studies MEDICAL HISTORY : Cardiovascular disease. Hypertension. SURGICAL HISTORY : None. ENCOUNTER: Initial ACUITY: 1 day PAIN SCALE: 0/10 LOCATION: cranial TECHNIQUE: Volumetric scanning was performed using a multi-row detector CT scanner. The data was post processed with a variety of visualization algorithms including full volume maximum intensity projection, multi -planar sliding thin slab reformation, curved planar reformation, and surface rendering techniques. Using automated exposure control and adjustment of the mA and/or kV according to patient size, radiat ion dose was kept as low as reasonably achievable to obtain optimal diagnostic quality images. FINDINGS: Examination is suboptimal but likely adequate for diagnosis. This is likely related to patient's body habitus. Anterior circulation: Patent inflow vessels. 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 There is a prominent a common with the excellent flow in the right anterior cerebral artery. The middle cerebral arteries a re patent without evidence for aneurysm or thrombus. Posterior circulation: Nearly codominant vertebral arteries with widely patent basilar artery. There is improved opacificati on of the posterior communicating arteries particularly on the left in comparison to prior exam. The left P-comm does appear slightly smaller in caliber than the right. The right P1 segment appears smal l in caliber compared to the left. Otherwise, posterior cerebral arteries are patent. Visualized portions of the brain demonstrate no significant abnormality. Ventricles are midline and n ormal in size. No significant intra-axial or extra-axial fluid collections or focal mass. Brainstem a nd cerebellum are grossly unremarkable. Paranasal sinuses and mastoid air cells are clear. Visualized portion of the calvarium are intact. CONCLUSION: 1. Suboptimal but diagnostic CTA examination, likely due to the patient's body habitus. 2. Patent intracranial arteries without evidence for significant occlusion/thrombosis. 3. 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 Improved opacification of the posterior circulation demonstrating slightly smaller caliber P-comm and right P1 segments. Bro Willett MD on September 15, 2016 at 13:56 Board Certified Radiologist. This report was verified electronically.
--- NOTE | 2016-09-15 14:58 | MB ---
cc: MARIFER VILLA M.D. DATE OF CONSULTATION: 09/15/2016 HISTORY OF PRESENT ILLNESS The patient is a 35-year-old seen as a Stroke Alert. I spoke to the emergency room physician on a couple of occasions while she was initially evaluated. She came in with right-sided weakness of approximately one hour duration before arriving to the hospital. CT brain was negative. Her symptoms persisted and after the second discussion with the ED physician I felt she was a candidate for TPA and she had an NIH score of 6. TPA was given. We also sent her for CT angio head and neck. CT brain was negative. CT angio neck is normal and CT angio head results are pending. The patient has a history of a lupus, hypertension and history of TIAs. In reviewing the hospital record now I found out she was here on September 02 with a fairly similar episode and also on June 18, again with a similar episode. She is telling me now she had headaches and I was not quite aware of this at the beginning and on episode from June 18 she also had a headache and actually came in and the diagnosis of a complicated migraine was made. The patient had been treated by physicians elsewhere and such a diagnosis made earlier on. NEUROLOGICAL EXAMINATION Her neurologic exam is somewhat limited. She was having a carotid ultrasound when I came in but I was able to examine the patient. She is markedly improved and according to the nursing staff about 15 minutes or so after the TPA bolus the patient's right face improved and she started opening the right eye and her right hemiparesis started improving. I am seeing very mild right arm and leg weakness and she gives away on the exam, therefore there is a limitation on this value. The ocular movements and visual ling are full. Pupils equal and reactive. Speech and language are completely normal. Reflexes are 1+. Plantar response is flexor. She is moderately overweight. LABORATORY The labs were reviewed. CBC is essentially normal today as well as chemistry with glucose being 89 and platelet count 331. ASSESSMENT Cerebrovascular ischemic event versus complicated migraine. PLAN/RECOMMENDATIONS TPA has been given. CT angio studies were done and the neck study is normal and the CT angio head results are pending. Interestingly I have reviewed recent evaluations in this medical facility from June 18 and September 02. She actually had CT angio head and neck, MRA head, MRI brain and CT brain studies which were all unremarkable. She has had metabolic studies essentially unremarkable with a mildly elevated sed rate. I will also check a lipid profile on this woman. She probably ought to be treated for migraine headaches and anxiety disorder. I will request an echocardiogram. She is to be admitted to the hospital for close observation and cardiac monitoring. Thank you for asking us to assist in her care. Marifer Villa MD OF[facility]/BT /2:44 PM /2:56 PM
[2016-09-15] MEDS: INSULIN ASPART SUPPLEMENTAL SCALE SQ SCH ×2 (15:39→21:00)
--- NOTE | 2016-09-15 16:46 | ECHRPT ---
Indication: S/P CVA CONCLUSIONS Normal left ventricular size and wall thickness. The left ventricular systolic function is normal wi th an estimated ejection fraction in the range of 50-55%. Left ventricular diastolic function parameters a re normal. BP: / HR: Rhythm: Sinus MEASUREMENTS (Male / Female) Normal Values Technical Quality:Technically difficult study 2D ECHO LV Diastolic Diameter PLAX 4.1 cm 4.2 - 5.9 / 3.9 - 5.3 cm LV Systolic Diameter PLAX 3.0 cm IVS Diastolic Thickness 0.9 cm 0.6 - 1.0 / 0.6 - 0.9 cm LVPW Diastolic Thickness 0.7 cm 0.6 - 1.0 / 0.6 - 0.9 cm LV Relative Wall Thickness 0.4 RV Internal Dim ED PLAX 1.8 cm LA Systolic Diameter LX 3.3 cm 3.0 - 4.0 / 2.7 - 3.8 cm DOPPLER AV Peak Velocity 74.6 cm/s AV Peak Gradient 2.2 mmHg Mitral E Point Velocity 68.5 cm/s Mitral A Point Velocity 60.9 cm/s Mitral E to A Ratio 1.1 LV E' Lateral Velocity 17.1 cm/s Mitral E to LV E' Lateral Ratio 4.0 LV E' Septal Velocity 7.7 cm/s Mitral E to LV E' Septal Ratio 8.9 TR Peak Velocity 190.0 cm/s TR Peak Gradient 14.4 mmHg FINDINGS LEFT VENTRICLE Normal left ventricular size and wall thickness. The left ventricular systolic function is normal wi th an estimated ejection fraction in the range of 50-55%. Left ventricular diastolic function parameters a re normal. RIGHT VENTRICLE Normal right ventricular size and systolic function. LEFT ATRIUM The left atrial size is normal. RIGHT ATRIUM The right atrial size is normal. ATRIAL SEPTUM Normal atrial septal thickness without atrial level shunting by limited color doppler interrogation. AORTA The aortic root and proximal ascending aorta are normal in size on limited imaging. MITRAL VALVE Structurally normal mitral valve. No mitral valve stenosis or regurgitation. AORTIC VALVE Trileaflet aortic valve. No aortic valve stenosis or regurgitation. TRICUSPID VALVE Structurally normal tricuspid valve. No tricuspid valve stenosis or regurgitation. PULMONARY VALVE The pulmonary valve is not well visualized. VESSELS The inferior vena cava is normal in size. PERICARDIUM No pericardial effusion. Fátima Rojas MD, FACC (Electronically Signed) Final Date:15 September 2016 16:45
--- NOTE | 2016-09-15 17:32 | HHI.HP ---
HPI Service Critical Care Medicine Primary Care Physician Unknown Admission Diagnosis stroke alert/TPA Diagnosis: Chief Complaint: right sided weakness Travel History International Travel<30 Days: No Contact w/Intl Traveler <30 Da: No Traveled to Known Affected Are: No History of Present Illness 35-year-old female with history of lupus, hypertension, previous TIAs with the last one 2 weeks ago, presents to the ER today for 1 hour history of right sided facial drooping, right sided arm and leg weakness and numbness in the arm and legs. She is complaining currently of a headache. She denies any chest pains, shortness of breath, or any of symptoms. She states that her TIA symptoms were very similar. She is on regular aspirin and has taken it this morning. EMS called a stroke alert. Patient was administered TPA in the ER following head CT which was negative for bleed. She was evaluated by neurology in the ER. She has previously been admitted with similar symptoms and has been diagnosed with migraines with previous workup for stroke being unremarkable. Patient was accepted for admission by critical care medicine. I evaluated the patient following arrival to the ICU. She was awake and alert at the time not in any acute distress. History PFSH Past Medical History Hx Anticoagulant Therapy: Yes (asa) Asthma: Yes Cardiovascular Problems: Yes Cerebrovascular Accident: Yes Diminished Hearing: No Hypertension: Yes Respiratory: Yes Migraines: Yes ?: Unknown SLE Social History Alcohol Use: No Tobacco Use: No Substance Use: No Allergies-Medications Allergies-Medications (Allergen,Severity, Reaction): Coded Allergies: Erythromycin (Verified Allergy, Severe, rash, 09/15/16) Sulfa (Verified Allergy, Severe, rash, 09/15/16) Reported Meds & Prescriptions Reported Meds & Active Scripts Active Verapamil ER (Verapamil HCl) 120 Mg Tab 120 Mg PO DAILY Adult Aspirin EC Low Strength (Aspirin) 81 Mg Tabec 81 Mg PO DAILY Reported Vitamin D3 (Cholecalciferol) 50,000 Unit Cap 50,000 Units PO Wed Gabapentin 100 Mg Cap 300 Mg PO TID ROS Review of Systems Except as stated in HPI: all other systems reviewed are Neg Physical Exam Vital Signs Vital Signs Date Time Temp Pulse Resp B/P Pulse Ox O2 Delivery O2 Flow Rate FiO2 09/15/16 16:07 97.8 86 16 126/67 100 09/15/16 12:12 97.8 86 18 127/85 99 09/15/16 12:05 88 18 100 Room Air 09/15/16 12:04 18 99 Room Air 09/15/16 12:04 99 Room Air Physical Exam Narrative GENERAL: Well-developed young white female patient currently in mild distress. Awake and oriented 3. SKIN: Focused skin assessment warm/dry. HEAD: Atraumatic. Normocephalic. EYES: Pupils equal and round. No scleral icterus. No injection or drainage. ENT: No nasal bleeding or discharge. Mucous membranes pink and moist. NECK: Trachea midline. No JVD. CARDIOVASCULAR: Regular rate and rhythm. No murmur appreciated. RESPIRATORY: No accessory muscle use. Clear to auscultation. Breath sounds equal bilaterally. GASTROINTESTINAL: Abdomen soft, non-tender, nondistended. Hepatic and splenic margins not palpable. MUSCULOSKELETAL: No obvious deformities. No clubbing. No cyanosis. No edema. NEUROLOGICAL: Awake and alert. Normal speech. RUBÉN, No facial asymmetry noted. Very minimal right upper extremity weakness. Moving bilateral lower extremities with good power PSYCHIATRIC: Appropriate mood and affect; insight and judgment normal. Laboratory Laboratory Tests Test 09/15/16 09/15/16 12:00 12:30 White Blood Count 7.0 Red Blood Count 4.76 Hemoglobin 12.8 Bedside Hemoglobin 13.3 Hematocrit 39.1 Bedside Hematocrit 39.0 Mean Corpuscular Volume 82.2 Mean Corpuscular Hemoglobin 26.9 Mean Corpuscular Hemoglobin 32.7 Concent Red Cell Distribution Width 14.9 Platelet Count 331 Mean Platelet Volume 7.7 Neutrophils (%) (Auto) 55.8 Lymphocytes (%) (Auto) 35.0 Monocytes (%) (Auto) 8.6 Eosinophils (%) (Auto) 0.0 Basophils (%) (Auto) 0.6 Neutrophils # (Auto) 3.9 Lymphocytes # (Auto) 2.5 Monocytes # (Auto) 0.6 Eosinophils # (Auto) 0.0 Basophils # (Auto) 0.0 CBC Comment DIFF FINAL Differential Comment Prothrombin Time 10.8 Prothromb Time International 1.0 Ratio Activated Partial 27.2 Thromboplast Time Fibrinogen 392 Bedside Sodium 138 Bedside Potassium 4.4 Bedside Chloride 101 Bedside Blood Urea Nitrogen 15 Bedside Creatinine 0.9 Bedside Glucose 89 Total Creatine Kinase 101 Troponin I LESS THAN 0.02 Human Chorionic Gonadotropin, LESS THAN 1 Quant Blood Type O POSITIVE Antibody Screen NEGATIVE Blood Bank Comment Urine Color YELLOW Urine Turbidity CLEAR Urine pH 7.0 Urine Specific [place] 1.020 Urine Protein NEG Urine Glucose (UA) NEG Urine Ketones NEG Urine Occult Blood NEG Urine Nitrite NEG Urine Bilirubin NEG Urine Urobilinogen LESS THAN 2.0 Urine Leukocyte Esterase NEG Urine RBC 1 Urine Squamous Epithelial 1 Cells Urine Mucus FEW Urine Opiates Screen NEG Urine Barbiturates Screen NEG Urine Amphetamines Screen NEG Urine Benzodiazepines Screen NEG Urine Cocaine Screen NEG Urine Cannabinoids Screen NEG Result Diagram: 09/15/16 1200 Imaging Last Impressions Neck CTA 09/15/16 1230 Signed Impressions: Service Date/Time: Thursday, September 15, 2016 13:44 - CONCLUSION: 1. Negative examination. Michael Atkins MD Head CTA 09/15/16 1230 Signed Impressions: Service Date/Time: Thursday, September 15, 2016 13:45 - CONCLUSION: 1. Suboptimal but diagnostic CTA examination, likely due to the patient's body habitus. 2. Patent intracranial arteries without evidence for significant occlusion/thrombosis. 3. 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 Improved opacification of the posterior circulation demonstrating slightly smaller caliber P-comm and right P1 segments. Bro Willett MD Head CT 09/15/16 0000 Signed Impressions: Service Date/Time: Thursday, September 15, 2016 12:13 - CONCLUSION: 1. No acute intracranial abnormality. Michael Atkins MD Assessment and Plan Assessment and Plan 35 y/o female with: Right-sided weakness CVA versus complex migraine History of lupus HTN Plan: Neuro: Patient received thrombolysis in the ER. Follow-up by neurology. Possible complex migraine. Defer to neurology regarding treatment. Follow-up MRI brain. Antiplatelet therapy per neurology Cardiovascular: IV hydration, watch for hypotension. Labetalol/Cardene when necessary for SBP greater than 1 80 mmHg Pulmonary: Supplemental O2 as needed. GI/liver: Nothing by mouth for now. Speech swallow eval and advance diet if passes swallow eval. Renal/: IV hydration, strict intake output, monitor and replete elect lites, follow BUN/creatinine. Endocrine: SSI for glycemic control if needed. Heme: Follow CBC ID: No antibiotics at this time. Prophylaxis: PPI/SCDs. Subcutaneous heparin when okay with neurology. We'll consult and transfer to hospitalist service tomorrow if doing well in terms of neuro status tomorrow. Rodrigo Pham MD Sep 15, 2016 17:32
--- NOTE | 2016-09-15 18:06 | RADRPT ---
EXAM DATE/TIME: 09/15/2016 17:02 [facility] COMPARISON: MRI BRAIN W/O CONTRAST, June 18, 2016, 18:34. CTA BRAIN W 3D RECON, September 15, 2016, 13:45. CTA [place] TID ARTERIES W 3D RECON, September 15, 2016, 13:44. CT BRAIN W/O CONTRAST, September 15, 2016, 12:13. INDICATIONS : CVA. Post TPA. MEDICAL HISTORY : Hypertension. TIA. SURGICAL HISTORY : Right ankle. ENCOUNTER: Subsequent ACUITY: 1 day PAIN SCORE: 3/10 LOCATION: cranial TECHNIQUE: Multiplanar, multisequence MRI of the brain was performed without contrast. FINDINGS: CEREBRUM: The ventricles are normal for age. No evidence of midline shift, mass lesion, hemorrhage or acute in farction. No extraaxial fluid collections are seen. The pituitary gland and suprasellar cistern are normal in configuration. WHITE MATTER: No significant signal abnormalities are seen in the white matter. POSTERIOR FOSSA: The cerebellum and brainstem are intact. The 4th ventricle is midline. The cerebellopontine angle is unremarkable. The cerebellar tonsils are normal in position. DIFFUSION IMAGING: No focal areas of restricted diffusion are seen. No evidence of acute infarction. EXTRACRANIAL: The visualized portions of the orbits and paranasal sinuses are unremarkable. CONCLUSION: Negative noncontrast MRI of the brain. Stan Gonzalez MD on September 15, 2016 at 18:03 Board Certified Radiologist. This report was verified electronically.
[2016-09-15 18:14] LABS: HEMOGLOBIN A1a 0.8 %; HEMOGLOBIN A1b 0.7 %; HEMOGLOBIN Ao 87.1 %; HEMOGLOBIN F 0.9 %; HEMOGLOBIN LA1C 1.7 %; HEMOGLOBIN P3 3.2 %
--- NOTE | 2016-09-15 18:14 | EKG ---
Date Performed: 09/15/2016 Time Performed: 12:29:42 PTAGE: 35 years EKG: Sinus rhythm NONSPECIFIC T-WAVE ABNORMALITY BORDERLINE ECG NO SIGNIFICANT CHANGE FROM PRIOR ELECTROCARDIOGRAM. NO PREVIOUS TRACING DOCTOR: Malick Willams Interpretating Date/Time 09/15/2016 18:13:53
--- NOTE | 2016-09-15 20:14 | RADRPT ---
EXAM DATE/TIME: 09/15/2016 14:04 [facility] COMPARISON: MRI BRAIN W/O CONTRAST, September 15, 2016, 17:02. INDICATIONS : Syncope. MEDICAL HISTORY : Hypertension. TIA. CVA. Asthma. SURGICAL HISTORY : Right ankle. ENCOUNTER: Initial ACUITY: 1 day PAIN SCORE: 0/10 LOCATION: Bilateral neck PEAK SYSTOLIC VELOCITIES (cm/sec): ICA/CCA RATIO: Right: 0.9 Left: 0.7 ICA: Right: 97 Left: 90 CCA: Right: 103 Left: 125 ECA: Right: 117 Left: 103 VERTEBRAL: Right: 69 antegrade Left: 42 antegrade Elevated flow velocities and ICA/CCA ratios have been found to correlate with increased degrees of vessel stenosis, calculated as percentage of diameter relative to a normal segment of distal ICA/CCA FINDINGS: RIGHT CAROTID: No significant stenosis is visualized. The waveforms are within normal limits. LEFT CAROTID: No significant stenosis is visualized. The waveforms are within normal limits. VERTEBRAL ARTERIES: Antegrade flow is seen in both vertebral arteries. MISCELLANEOUS: None. CONCLUSION: Normal carotid ultrasound. Stan Gonzalez MD on September 15, 2016 at 20:11 Board Certified Radiologist. This report was verified electronically.
[2016-09-15 20:42] LABS: HDL CHOLESTEROL 61.4 MG/DL (40.0-60.0)
[2016-09-15] MEDS: SODIUM CHLORIDE 0.9% FLUSH 5 ML FLUSH IV FLUSH SCH (21:00)
[2016-09-15] MEDS ORDERED: ACETAMINOPHEN 325 MG TAB PO PRN (22:15)
[2016-09-16] VITALS (8 sets, daily range): BP systolic 112–130; BP diastolic 56–72; PULSE 72–94; RESP 16–22; TEMP 97.8–98.8; O2SAT 95–99
[2016-09-16] MEDS: SODIUM CHLOR 0.9% 1000 ML INJ 1,000 ML IV SCH (03:10)
[2016-09-16] MEDS: INSULIN ASPART SUPPLEMENTAL SCALE SQ SCH ×2 (07:00→11:25)
[2016-09-16] MEDS: SODIUM CHLORIDE 0.9% FLUSH 5 ML FLUSH IV FLUSH SCH (08:42)
--- NOTE | 2016-09-16 09:45 | HHI.PR ---
Subjective Remarks resting comfortably with no distress. weakness of the right upper extremity has resolved. no new complaints. d/w the RN. Objective Vitals Vital Signs Date Time Temp Pulse Resp B/P Pulse Ox O2 Delivery O2 Flow Rate FiO2 09/16/16 08:00 75 09/16/16 08:00 98.3 78 16 121/60 99 09/16/16 07:00 100 Room Air 09/16/16 06:00 72 09/16/16 04:00 80 09/16/16 04:00 98.5 80 22 112/56 96 09/16/16 02:00 84 09/16/16 00:00 97.8 81 19 127/72 95 09/16/16 00:00 80 09/15/16 22:00 84 09/15/16 20:00 98.2 88 16 120/67 96 09/15/16 20:00 88 09/15/16 19:00 99 Room Air 09/15/16 18:00 89 09/15/16 16:41 98 09/15/16 16:41 100 Room Air 09/15/16 16:41 98.5 98 25 146/82 100 09/15/16 16:07 97.8 86 16 126/67 100 09/15/16 12:12 97.8 86 18 127/85 99 09/15/16 12:05 88 18 100 Room Air 09/15/16 12:04 18 99 Room Air 09/15/16 12:04 99 Room Air I/O 09/15/16 09/15/16 09/15/16 09/16/16 09/16/16 09/16/16 07:00 15:00 23:00 07:00 15:00 23:00 Intake Total 623 ml 450 ml Output Total 1150 ml 250 ml Balance -527 ml 200 ml Intake IV Total 623 ml 450 ml Output Urine Total 1150 ml 250 ml # Bowel Movements 0 0 Result Diagram: 09/15/16 1200 Imaging Last Impressions Neck CTA 09/15/16 1230 Signed Impressions: Service Date/Time: Thursday, September 15, 2016 13:44 - CONCLUSION: 1. Negative examination. Michael Atkins MD Head CTA 09/15/16 1230 Signed Impressions: Service Date/Time: Thursday, September 15, 2016 13:45 - CONCLUSION: 1. Suboptimal but diagnostic CTA examination, likely due to the patient's body habitus. 2. Patent intracranial arteries without evidence for significant occlusion/thrombosis. 3. 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 Improved opacification of the posterior circulation demonstrating slightly smaller caliber P-comm and right P1 segments. Bro Willett MD Head CT 09/15/16 Signed Impressions: Service Date/Time: Thursday, September 15, 2016 12:13 - CONCLUSION: 1. No acute intracranial abnormality. Michael Atkins MD Carotid Artery Ultrasound 09/15/16 Signed Impressions: Service Date/Time: Thursday, September 15, 2016 14:04 - CONCLUSION: Normal carotid ultrasound. Stan Gonzalez MD Brain MRI 09/15/16 Signed Impressions: Service Date/Time: Thursday, September 15, 2016 17:02 - CONCLUSION: Negative noncontrast MRI of the brain. Stan Gonzalez MD Objective Remarks GENERAL: This is a well-nourished, well-developed patient, in no apparent distress. CARDIOVASCULAR: Regular rate and regular rhythm without murmurs, gallops, or rubs. RESPIRATORY: Clear to auscultation. Breath sounds equal bilaterally. No wheezes , rales, or rhonchi. GASTROINTESTINAL: Abdomen soft, non-tender, nondistended. Normal, active bowel sounds MUSCULOSKELETAL: Extremities without clubbing, cyanosis, or edema. NEURO: Alert & Oriented x4 to person, place, time, situation. Moves all ext x4 Procedures TPA administration Medications and IVs Current Medications Sodium Chloride (NS 1000 ml Inj) 1,000 ml @ 70 mls/hr [id number] ONCE IV Last administered on 09/15/16 12:03; Start 09/15/16 at 12:03; Stop 09/15/16 at 13:47 ; Status DC Alteplase, Recombinant 9 mg 9 mg ONCE ONCE IV Last administered on 09/15/16 13:16; Start 09/15/16 at 13:00; Stop 09/15/16 at 13:01; Status DC Alteplase, Recombinant/ Syringe / Bag (Activase Drip/ Syringe/Bag) 81 ml @ 81 mls/hr ONCE ONCE IV Last administered on 09/15/16 13:20; Start 09/15/16 at 13 :00; Stop 09/15/16 at 13:59; Status DC Sodium Chloride (NS Inj) 30 ml ONCE ONCE IVF Last administered on 09/15/16 14 :18; Start 09/15/16 at 13:00; Stop 09/15/16 at 13:01; Status DC Miscellaneous Information No Heparin, Warfarin, Aspir... UNSCH PRN XX SEE DOSE INSTRUCTIONS; Start 09/15/16 at 13:00; Stop 09/16/16 at 12:59 IV Flush (NS Flush) 2 ml BID IV FLUSH Last administered on 09/16/16 08:42; Start 09/15/16 at 21:00 IV Flush 2 ml 2 ml UNSCH PRN IV FLUSH FLUSH AFTER USING IV ACCESS Last administered on 09/15/16 15:49; Start 09/15/16 at 13:30 Sodium Chloride (NS 1000 ml Inj) 1,000 ml @ 70 mls/hr [id number] IV Last administered on 09/16/16 03:10; Start 09/15/16 at 13:30 Labetalol HCl 10 mg 10 mg Q2H PRN IV For SBP > 180 or DBP > 100; Start at 13:30 Nicardipine HCl/ Sodium Chloride (Cardene Inj/NS 250 ml Inj) 260 ml @ 0 mls/hr TITRATE IV ; Start 09/15/16 at 13:30 Insulin Aspart (NovoLOG SUPPLEMENTAL SCALE) 1 ACHS SQ ; Start 09/15/16 at 16:00 Dextrose (D50w (Vial) Inj) 50 ml UNSCH PRN IV PUSH HYPOGLYCEMIA-SEE COMMENTS Last administered on 09/15/16 15:49; Start 09/15/16 at 13:30 Glucagon (Glucagon Inj) 1 mg UNSCH PRN OTHER HYPOGLYCEMIA-SEE COMMENTS; Start 09/15/16 at 13:30 Iohexol (Omnipaque 350 Inj) 75 ml STK-MED ONCE IV Last administered on 13:49; Start 09/15/16 at 13:49; Stop 09/15/16 at 13:50; Status DC Iohexol (Omnipaque 350 Inj) 70 ml STK-MED ONCE IV ; Start 09/15/16 at 14:18; Stop 09/15/16 at 14:19; Status Cancel Acetaminophen (Tylenol) 650 mg Q6H PRN PO FOR PAIN Last administered on t 22:21; Start 09/15/16 at 22:15 A/P Assessment and Plan A: Right-sided weakness; CVA versus complex migraine s/p TPA History of lupus HTN plan: - continue with neuro-checks -repeat CT head today -awaiting neurology follow-up. -PT/ST evaluation appreciated. Discharge Planning possible dc home soon - pending CT head and neurology recommendations. Vicky Grey MD Sep 16, 2016 09:45
--- NOTE | 2016-09-16 14:38 | RADRPT ---
EXAM DATE/TIME: 09/16/2016 13:16 [facility] COMPARISON: CT BRAIN W/O CONTRAST, September 15, 2016, 12:13. INDICATIONS : Post TPA evaluation. RADIATION DOSE: 46.21 CTDIvol (mGy) MEDICAL HISTORY : Stroke. Hypertension. Lupus. SURGICAL HISTORY : None. ENCOUNTER: Subsequent ACUITY: 1 day PAIN SCALE: 1/10 LOCATION: Right side numbness. TECHNIQUE: Multiple contiguous axial images were obtained of the head. Using automated exposure control and adj ustment of the mA and/or kV according to patient size, radiation dose was kept as low as reasonably a chievable to obtain optimal diagnostic quality images. FINDINGS: CEREBRUM: The ventricles are normal for age. No evidence of midline shift, mass lesion, hemorrhage or acute in farction. No extra-axial fluid collections are seen. POSTERIOR FOSSA: The cerebellum and brainstem are intact. The 4th ventricle is midline. The cerebellopontine angle i s unremarkable. EXTRACRANIAL: The visualized portion of the orbits is intact. SKULL: The calvaria is intact. No evidence of skull fracture. CONCLUSION: 1. No acute intracranial abnormality. Specifically, no evidence for intracranial hemorrhage status po st TPA administration. Bro Willett MD on September 16, 2016 at 14:33 Board Certified Radiologist. This report was verified electronically.
[2016-09-16] MEDS ORDERED: ASPI-99 PO (15:18)
== END 2016-09-16 16:20 | disposition home or self-care (01) | DRG 62 ==
LOC: NEPC 11:58 → NEDA 13:29 → N03A 16:20 → UNDODISIN 09-16 15:36
PROVIDERS: ADMIT Internal Medicine; ATTEND Internal Medicine
DX: I63.9 Cerebral infarction, unspecified (principal); G81.91 Hemiplegia, unspecified affecting right dominant side; M32.9 Systemic lupus erythematosus, unspecified; I10 Essential (primary) hypertension; G43.109 Migraine with aura, not intractable, without status migrainosus; J45.909 Unspecified asthma, uncomplicated; F41.9 Anxiety disorder, unspecified; E66.3 Overweight; Z86.73 Personal history of transient ischemic attack (TIA), and cerebral infarction without residual deficits
CPT/HCPCS: 51702; 70450; 70496; 70498; 70551; 80061; 80307; 81001; 82435; 82550; 82565; 82947; 82948; 83036; 84132; 84295; 84484; 84520; 84702; 84703; 85025; 85384; 85610; 85730; 86850; 86900; 86901; 87641; 93005; 93306; 93880; 96361; 96374; 96375; G8996-GN; G8997-GN; G8998-GN; J1815; J2997; J7030; Q9967

== ENCOUNTER 2016-11-02 12:49 | Emergency (ER) | payer OTHER ==
[~2016-11-02] VITALS: Ht 165.1 cm; Wt 125.0 kg
[~2016-11-02 12:49] MED LIST changes: -CRYS28TA PO; -GABA300S; -METH500T PO
[2016-11-02 13:06] VITALS: BP 144/60; PULSE 82; RESP 19; TEMP 97.6; O2SAT 100
--- NOTE | 2016-11-02 13:24 | PD ---
HPI Chief Complaint: Neuro Symptoms/ Deficits Time Seen by Provider: 13:24 Travel History International Travel<30 days: No Contact w/Intl Traveler<30days: No Traveled to known affect area: No History of Present Illness HPI 35-year-old female presents to the emergency department via EMS for evaluation of neurological symptoms that she stated started approximately 1 hour prior to arrival. Patient has history of complex migraines. She was seen in August and was diagnosed with a TIA. She was also seen again in September and was given TPA as a possible stroke. The patient states that she started with some right eyelid drooping as well as right arm and right leg numbness, tingling, weakness. Patient states the symptoms are resolving. However, she still reports some weakness and tingling to the right upper and right lower extremity. The patient does state that she started with a headache behind her right eye before other symptoms appeared. She states that she does not always get headaches before her symptoms appear. She states that she sees a neurologist in [facility]. She saw a another neurologist in [facility] for a second opinion. They're unsure if she had a stroke. She states they're also unsure if she has complex migraines, but are not sure what is going on. PFSH Past Medical History Asthma: Yes Autoimmune Disease: Yes (LUPUS) Cardiovascular Problems: Yes Cerebrovascular Accident: Yes Diminished Hearing: No Hypertension: Yes Neurologic: Yes (TIA) Respiratory: Yes Migraines: Yes ?: Not LMP: july 2016 : 0 Para: 0 Miscarriage: 0 : 0 Past Surgical History Other Surgery: Yes Social History Alcohol Use: Yes (RARE) Tobacco Use: No Substance Use: No Allergies-Medications (Allergen,Severity, Reaction): Coded Allergies: Erythromycin (Verified Allergy, Severe, rash, 09/15/16) Sulfa (Verified Allergy, Severe, rash, 09/15/16) Reported Meds & Prescriptions Reported Meds & Active Scripts Active Verapamil ER (Verapamil HCl) 120 Mg Tab 120 Mg PO DAILY Reported Venlafaxine ER 24 HR (Venlafaxine HCl) 75 Mg Cap 75 Mg PO DAILY Aspirin 325 Mg Tab 325 Mg PO DAILY Gabapentin 100 Mg Cap 300 Mg PO TID Review of Systems Except as stated in HPI: all other systems reviewed are Neg Physical Exam Narrative GENERAL: Well-nourished, well-developed female patient, afebrile. SKIN: Focused skin assessment warm/dry. HEAD: Normocephalic. Atraumatic. EYES: No scleral icterus. No injection or drainage. NECK: Supple, trachea midline. No JVD or lymphadenopathy. CARDIOVASCULAR: Regular rate and rhythm without murmurs, gallops, or rubs. RESPIRATORY: Breath sounds equal bilaterally. No accessory muscle use. Lungs sounds are clear to auscultation GASTROINTESTINAL: Abdomen soft, non-tender, nondistended. MUSCULOSKELETAL: No cyanosis, or edema. BACK: Nontender without obvious deformity. No CVA tenderness. NEUROLOGICAL: Awake and alert. Cranial nerves II through XII intact. Motor and sensory grossly within normal limits. Five out of 5 muscle strength in all muscle groups. Normal speech. Patient reports diminished sensation to the right upper and lower extremity. Finger to nose is normal bilaterally. She does have difficulty with [id number] with the right leg. Data Data Last Documented VS Vital Signs Date Time Temp Pulse Resp B/P Pulse Ox O2 Delivery O2 Flow Rate FiO2 11/02/16 14:01 98.0 99 18 132/76 98 Room Air Orders Complete Blood Count With Diff (11/02/16 13:32) Comprehensive Metabolic Panel (11/02/16 13:32) Prothrombin Time / Inr (Pt) (11/02/16 13:32) Act Partial Throm Time (Ptt) (11/02/16 13:32) Ecg Monitoring (11/02/16 13:32) Iv Access Insert/Monitor (11/02/16 13:32) Oximetry (11/02/16 13:32) Sodium Chloride 0.9% Flush (Ns Flush) (11/02/16 13:45) Sodium Chlor 0.9% 1000 Ml Inj (Ns 1000 M (11/02/16 13:32) Urinalysis - C+S If Indicated (11/02/16 13:36) Prochlorperazine Inj (Compazine Inj) (11/02/16 13:45) Diphenhydramine Inj (Benadryl Inj) (11/02/16 13:45) Electrocardiogram (11/02/16 13:18) Labs Laboratory Tests Test 11/02/16 11/02/16 13:30 14:15 White Blood Count 7.7 TH/MM3 Red Blood Count 4.69 MIL/MM3 Hemoglobin 13.1 GM/DL Hematocrit 38.5 % Mean Corpuscular Volume 82.0 FL Mean Corpuscular Hemoglobin 27.8 PG Mean Corpuscular Hemoglobin 33.9 % Concent Red Cell Distribution Width 15.0 % Platelet Count 329 TH/MM3 Mean Platelet Volume 8.2 FL Neutrophils (%) (Auto) 62.7 % Lymphocytes (%) (Auto) 30.9 % Monocytes (%) (Auto) 5.9 % Eosinophils (%) (Auto) 0.0 % Basophils (%) (Auto) 0.5 % Neutrophils # (Auto) 4.8 TH/MM3 Lymphocytes # (Auto) 2.4 TH/MM3 Monocytes # (Auto) 0.5 TH/MM3 Eosinophils # (Auto) 0.0 TH/MM3 Basophils # (Auto) 0.0 TH/MM3 CBC Comment DIFF FINAL Differential Comment Prothrombin Time 10.3 SEC Prothromb Time International 0.9 RATIO Ratio Activated Partial 26.3 SEC Thromboplast Time Sodium Level 137 MEQ/L Potassium Level 4.1 MEQ/L Chloride Level 103 MEQ/L Carbon Dioxide Level 25.7 MEQ/L Anion Gap 8 MEQ/L Blood Urea Nitrogen 12 MG/DL Creatinine 0.88 MG/DL Estimat Glomerular Filtration 74 ML/MIN Rate Random Glucose 107 MG/DL Calcium Level 8.9 MG/DL Total Bilirubin 0.3 MG/DL Aspartate Amino Transf 23 U/L (AST/SGOT) Alanine Aminotransferase 33 U/L (ALT/SGPT) Alkaline Phosphatase 80 U/L Total Protein 7.2 GM/DL Albumin 3.5 GM/DL Urine Color LIGHT-YELLOW Urine Turbidity CLEAR Urine pH 6.5 Urine Specific [place] 1.008 Urine Protein NEG mg/dL Urine Glucose (UA) NEG mg/dL Urine Ketones NEG mg/dL Urine Occult Blood MOD Urine Nitrite NEG Urine Bilirubin NEG Urine Urobilinogen LESS THAN 2.0 MG/DL Urine Leukocyte Esterase NEG Urine RBC 1 /hpf Urine WBC 1 /hpf Urine Squamous Epithelial 1 /hpf Cells Urine Bacteria RARE /hpf Microscopic Urinalysis Comment CULT NOT INDICATED MDM Medical Decision Making Medical Screen Exam Complete: Yes Emergency Medical Condition: Yes Medical Record Reviewed: Yes Differential Diagnosis Complicated migraine versus TIA versus CVA versus electrolyte abnormality Narrative Course 35-year-old female presents to the emergency department for evaluation of right arm and right leg weakness and paresthesias that started approximately 1 hour prior to arrival. The patient has history of complicated migraines. She did receive TPA in September. I discussed the findings with my attending physician, Dr. Ramey, who also examined patient. She agrees that this is more likely to be complicated migraine, less likely stroke. CBC, CMP, PTT, PTT/INR, UA are ordered and pending. Patient is given normal saline 1 L IV bolus, Compazine 10 mg IV, Benadryl 25 mg IV. CBC is unremarkable. CMP shows no acute abnormality. Coags are unremarkable. UA is negative for acute infection. Upon reexamination, patient states symptoms are still resolving. She is now able to perform heel to merrill without difficulty. She states she has some minor paresthesias, but symptoms are improving. I discussed admission versus discharge home and follow up with her neurologist. She states she feels comfortable going home and would like to follow-up with her neurologist. I do not believe patient is having CVA, most likely complicated migraine. My attending physician, Dr. Ramey, agrees with plan and disposition. The patient was discharged in stable condition with instructions, including return instructions and follow up instructions. Diagnosis Primary Impression: Complicated migraine Additional Impression: Paresthesias Referrals: Neurologist 2 days Patient Instructions: General Instructions, Migraine Headache (ED) Additional Instructions: Take naproxen as directed as needed for headache. Follow-up with your neurologist. Return to the emergency department for any acute worsening of symptoms. Med/Other Pt SpecificInfo: Prescription(s) given Scripts Naproxen 500 Mg [id number] Mg PO BID PRN (HEADACHE) #22 TAB Ref 0 Prov:Lesley Darnell 11/02/16 Disposition: DISCHARGE HOME Condition: Stable Lesley Darnell Nov 02, 2016 13:24
[2016-11-02] MEDS ORDERED: SODIUM CHLOR 0.9% 1000 ML INJ 1,000 ML IV ONE (13:32)
[2016-11-02] MEDS ORDERED: VENL75CA44 PO (13:33)
[2016-11-02] MEDS ORDERED: ASPI325T PO (13:33)
[2016-11-02] MEDS ORDERED: PROCHLORPERAZINE INJ 10 MG/2 ML VIAL IV PUSH ONE (13:45)
[2016-11-02] MEDS ORDERED: SODIUM CHLORIDE 0.9% FLUSH 10 ML FLUSH IVF PRN (13:45)
[2016-11-02] MEDS ORDERED: diphenhydrAMINE HCL 50 MG/ML VIAL IV PUSH ONE (13:45)
[2016-11-02 13:48] LABS: AUTOMATED NEUTROPHIL # 4.8 TH/MM3 (1.8-7.7); BASOPHIL % 0.5 % (0.0-2.0); HEMATOCRIT 38.5 % (35.0-46.0); HEMO FLAGS DIFF FINAL; LYMPH % 30.9 % (9.0-44.0); LYMPHOCYTE # 2.4 TH/MM3 (1.0-4.8); MEAN CORPUSCULAR HEMOGLOBIN 27.8 PG (27.0-34.0); MEAN CORPUSCULAR HGB CONC 33.9 % (32.0-36.0); MONO % 5.9 % (0.0-8.0); NEUT % 62.7 % (16.0-70.0); PLATELET COUNT 329 TH/MM3 (150-450); RED BLOOD COUNT 4.69 MIL/MM3 (4.00-5.30); WHITE BLOOD COUNT 7.7 TH/MM3 (4.0-11.0)
[2016-11-02 14:01] VITALS: BP 132/76; PULSE 99; RESP 18; TEMP 98; O2SAT 98
[2016-11-02 14:03] LABS: APTT (PATIENT) 26.3 SEC (24.3-30.1); INTERNATIONAL NORMALIZED RATIO 0.9 RATIO; PROTHROMBIN TIME - PATIENT 10.3 SEC (9.8-11.6)
[2016-11-02 14:04] LABS: ALT (GPT) 33 U/L (10-53); ANION GAP 8 MEQ/L (5-15); AST (GOT) 23 U/L (15-37); BICARBONATE 25.7 MEQ/L (21.0-32.0); BLOOD UREA NITROGEN 12 MG/DL (7-18); CHLORIDE 103 MEQ/L (98-107); GLOMERULAR FILTRATION RATE 74 ML/MIN (>89); POTASSIUM 4.1 MEQ/L (3.5-5.1); SODIUM (NA) 137 MEQ/L (136-145)
[2016-11-02 14:07] LABS: ALKALINE PHOSPHATASE 80 U/L (45-117); TOTAL BILIRUBIN ADULT 0.3 MG/DL (0.2-1.0)
[2016-11-02 14:47] LABS: BACTERIA, URINE RARE /hpf; BLOOD, URINE MOD (NEG); COMMENT (UR) CULT NOT INDICATED; CULTURE IF INDICATED CULT NOT INDICATED; GLUCOSE,URINE NEG (NEG); KETONE, URINE NEG (NEG); NITRITE,URINE NEG (NEG); PH, URINE 6.5 (5.0-8.5); SQUAMOUS EPITHELIAL CELL URINE 1 /hpf (0-5); URINE COLOR LIGHT-YELLOW (YELLW/STRAW)
[2016-11-02] MEDS ORDERED: NAPR500T PO (15:12)
[2016-11-02 15:26] VITALS: BP 126/66; PULSE 87; RESP 16; O2SAT 100
--- NOTE | 2016-11-02 18:25 | PD ---
Data Data Last Documented VS Vital Signs Date Time Temp Pulse Resp B/P Pulse Ox O2 Delivery O2 Flow Rate FiO2 11/02/16 15:26 87 16 126/66 100 Room Air 11/02/16 14:01 98.0 Orders Complete Blood Count With Diff (11/02/16 13:32) Comprehensive Metabolic Panel (11/02/16 13:32) Prothrombin Time / Inr (Pt) (11/02/16 13:32) Act Partial Throm Time (Ptt) (11/02/16 13:32) Ecg Monitoring (11/02/16 13:32) Iv Access Insert/Monitor (11/02/16 13:32) Oximetry (11/02/16 13:32) Sodium Chloride 0.9% Flush (Ns Flush) (11/02/16 13:45) Sodium Chlor 0.9% 1000 Ml Inj (Ns 1000 M (11/02/16 13:32) Urinalysis - C+S If Indicated (11/02/16 13:36) Prochlorperazine Inj (Compazine Inj) (11/02/16 13:45) Diphenhydramine Inj (Benadryl Inj) (11/02/16 13:45) Electrocardiogram (11/02/16 13:18) Labs Laboratory Tests Test 11/02/16 11/02/16 13:30 14:15 White Blood Count 7.7 TH/MM3 Red Blood Count 4.69 MIL/MM3 Hemoglobin 13.1 GM/DL Hematocrit 38.5 % Mean Corpuscular Volume 82.0 FL Mean Corpuscular Hemoglobin 27.8 PG Mean Corpuscular Hemoglobin 33.9 % Concent Red Cell Distribution Width 15.0 % Platelet Count 329 TH/MM3 Mean Platelet Volume 8.2 FL Neutrophils (%) (Auto) 62.7 % Lymphocytes (%) (Auto) 30.9 % Monocytes (%) (Auto) 5.9 % Eosinophils (%) (Auto) 0.0 % Basophils (%) (Auto) 0.5 % Neutrophils # (Auto) 4.8 TH/MM3 Lymphocytes # (Auto) 2.4 TH/MM3 Monocytes # (Auto) 0.5 TH/MM3 Eosinophils # (Auto) 0.0 TH/MM3 Basophils # (Auto) 0.0 TH/MM3 CBC Comment DIFF FINAL Differential Comment Prothrombin Time 10.3 SEC Prothromb Time International 0.9 RATIO Ratio Activated Partial 26.3 SEC Thromboplast Time Sodium Level 137 MEQ/L Potassium Level 4.1 MEQ/L Chloride Level 103 MEQ/L Carbon Dioxide Level 25.7 MEQ/L Anion Gap 8 MEQ/L Blood Urea Nitrogen 12 MG/DL Creatinine 0.88 MG/DL Estimat Glomerular Filtration 74 ML/MIN Rate Random Glucose 107 MG/DL Calcium Level 8.9 MG/DL Total Bilirubin 0.3 MG/DL Aspartate Amino Transf 23 U/L (AST/SGOT) Alanine Aminotransferase 33 U/L (ALT/SGPT) Alkaline Phosphatase 80 U/L Total Protein 7.2 GM/DL Albumin 3.5 GM/DL Urine Color LIGHT-YELLOW Urine Turbidity CLEAR Urine pH 6.5 Urine Specific [place] 1.008 Urine Protein NEG mg/dL Urine Glucose (UA) NEG mg/dL Urine Ketones NEG mg/dL Urine Occult Blood MOD Urine Nitrite NEG Urine Bilirubin NEG Urine Urobilinogen LESS THAN 2.0 MG/DL Urine Leukocyte Esterase NEG Urine RBC 1 /hpf Urine WBC 1 /hpf Urine Squamous Epithelial 1 /hpf Cells Urine Bacteria RARE /hpf Microscopic Urinalysis Comment CULT NOT INDICATED MDM Supervised Visit with ROBBY: Yes Narrative Course The history, exam, and medical decision-making in the associated midlevel provider note were completed with my assistance. I reviewed and agree with the findings presented. I attest that I had a [id number] encounter with the patient on the same day, and personally performed and documented my assessment and findings in the medical record. *My assessment and Findings: This is a 35-year-old female who presents to the emergency department with some right sided weakness and paresthesias associated with a headache behind her right eye. This has happened to her multiple times in the past. She's been diagnosed with complex migraine before, as well as TIA and most recently received TPA for possible stroke about one month ago. All neuroimaging has been reassuring with no evidence of ischemic disease and CTAs have been normal. She's had rapid improvement of symptoms in the emergency department following administration of a migraine cocktail. I had a long conversation with the patient. Technically she would fall within the TPA window but given the recurrence of her symptoms and the absence of any objective neuroimaging findings she and I both agree that this is unlikely to be a stroke. She agrees that she would not want TPA for her symptoms and she doesn't really want to be admitted again to have the same workup that she's had in the past with no definitive answers. I think this is reasonable and I think given her symptoms are improving I think she can follow-up with her neurologist as an outpatient. She understands that if her symptoms worsen she can return to the emergency department. Diagnosis Primary Impression: Complicated migraine Additional Impressions: Paresthesias Neurological deficit, transient Referrals: Neurologist 2 days Patient Instructions: General Instructions, Migraine Headache (ED) Departure Forms: Tests/Procedures Additional Instruction: Take naproxen as directed as needed for headache. Follow-up with your neurologist. Return to the emergency department for any acute worsening of symptoms. Scripts Naproxen 500 Mg [id number] Mg PO BID PRN (HEADACHE) #22 TAB Ref 0 Prov:Lesley Darnell 11/02/16 Disposition: 01 DISCHARGE HOME Condition: Stable Alisia Ramey MD Nov 02, 2016 18:25
--- NOTE | 2016-11-03 14:02 | EKG ---
Date Performed: 11/02/2016 Time Performed: 13:18:25 PTAGE: 35 years EKG: Sinus rhythm Since previous tracing, no significant change noted NORMAL ECG PREVIOUS TRACING : 09/15/2016 12.29 DOCTOR: Nathaniel Cazares Interpretating Date/Time 11/03/2016 14:01:26
== END 2016-11-02 15:31 | disposition home or self-care (01) ==
LOC: NEPE 12:49
DX: R20.0 Anesthesia of skin (principal); G43.109 Migraine with aura, not intractable, without status migrainosus; R29.818 Other symptoms and signs involving the nervous system; M32.9 Systemic lupus erythematosus, unspecified; Z86.73 Personal history of transient ischemic attack (TIA), and cerebral infarction without residual deficits
CPT/HCPCS: 80053; 81001; 85025; 85610; 85730; 93005; 96361; 96374; 96375; 99284; J0780; J1200; J7030